=== PATIENT | female | born 1965 | race Caucasian/White ===

== ENCOUNTER 2020-04-29 00:45 | Outpatient (CLI) | payer OTHER, SELFPAY ==
[2020-04-29 18:12] LABS: SARS-CoV-2 RNA PCR Negative
== END 2020-04-29 00:46 | disposition home or self-care (01) ==
LOC: ANHCOVIDDT 00:45
PROVIDERS: PCP Family Medicine; Visit Provider Internal Medicine Gastroenterology
DX: Z20.828 Contact with and (suspected) exposure to other viral communicable diseases (principal); Z01.812 Encounter for preprocedural laboratory examination
CPT/HCPCS: 87635; C9803; U0003

== ENCOUNTER 2020-05-01 01:50 | Day surgery (SDC) | payer OTHER, SELFPAY ==
[2020-04-25 14:17] VITALS: BMI 24.9
[2020-05-01 10:03] VITALS: BP 95/65; PULSE 69; RESP 18; TEMP 36.6; O2SAT 99
--- NOTE | 2020-05-01 10:14 | WPDANESEPPF ---
Anes - Initial Pre Proc Eval Procedure: Operation Date: 05/01/20 11:30 Proposed Procedures p Colonoscopy - Georges Davis DO Date/Time: 05/01/20 10:14 Surgeon: Georges Davis DO Pre Op Diagnosis: Constipation Patient Data Age: 54 Gender: F Height: 5 ft 6 in Weight: 69.4 kg Last Vital Signs Temp 97.9 F 05/01/20 10:03 Pulse 69 05/01/20 10:03 Resp 18 05/01/20 10:03 BP 95/65 L 05/01/20 10:03 Pulse Ox 99 05/01/20 10:03 Allergies Allergy/AdvReac Type Severity Reaction Status Date / Time adhesive tape Allergy Mild RASH Verified 05/01/20 10:02 morphine Allergy Unknown itching Verified 05/01/20 10:02 and rash Sulfa (Sulfonamide Allergy Unknown rash and Verified 05/01/20 10:02 Antibiotics) nausea Home Medications Medication Instructions Recorded Confirmed Type alprazolam 0.5 mg PO PRN PRN 04/25/20 04/25/20 History buspirone 10 mg PO DAILY 04/25/20 04/25/20 History escitalopram oxalate 40 mg PO DAILY 04/25/20 04/25/20 History eszopiclone [Lunesta] 3 mg PO HS 04/25/20 04/25/20 History melatonin 5 mg PO HS PRN 04/25/20 04/25/20 History omega 6-xhm-eqt-fish oil [Fish Oil] 1 cap PO DAILY 04/25/20 04/25/20 History Patient hx anesthesia problems: none Family hx anesthesia problems: none [facility] Past Medical History Medical History (Updated 05/01/20 @ 10:14 by Antonio Loyola MD) Anxiety Depression Social History Social History Smoking status: Never smoker Second hand tobacco smoke exposure: No Alcohol intake: current Anes - Eval Final PreProcedure Day of Procedure 05/01/20 10:14 Patient weight: normal Heart: regular rate and rhythm Lungs: clear to auscultation Airway: Mallampati scale class II Neurological: alert and oriented Last oral intake: >/= 8 hours ASA classification: II Emergent: no Anesthetic plan: proceed Anesthesia type and monitoring: general GIVS and standard monitoring Informed Consent: The patient's anesthetic plan and its attendant risks and benefits were discussed with the patient/family/POA. Questions were solicited and answers provided to the satisfaction of the patient/family/POA.
[2020-05-01] MEDS: LACTATED RINGERS 1,000 ML 150 ML IV CONT (10:16)
--- NOTE | 2020-05-01 10:40 | P.HP_ITS ---
H&P: HPI History of Present Illness Chief complaint: Constipation Narrative: Reason for visit colonoscopy. This very pleasant lady's being evaluated at the request of the primary. The patient was examined. Impression: Screening colonoscopy. Patient does complain of occasional rectal bleeding which is probably of perianal origin. She does have occasional constipation which is probably functional. For past medical history. Recommendation: Colonoscopy. History: This very pleasant lady's being evaluated for colon cancer and polyp screening. She has had a previous colonoscopy several years ago which was unremarkable. She does complain of occasional constipation and occasional bright red blood per rectum. She is here for colonoscopy to assess for underlying inflammatory or neoplastic disease. Physical examination: General: very pleasant patient in no acute distress. HEENT: Head was normocephalic sclerae is clear mouth without masses neck was supple. Heart: Rate rhythm regular without S3 or S4. Lungs: CTA. Abdomen: Soft with no guarding or rigidity. Bowel sounds were active. Neurologic: Cranial nerves 2 through 12 intact. No focal defects. No clonus. Musculoskeletal system: Revealed no joint tenderness or swelling no muscle atrophy. Extremities: Reveal no significant edema. Skin: Warm and dry with normal turgor. Mental status: intact. Patient is alert and oriented. Review of Systems Review of Systems: All systems reviewed & are unremarkable except as noted in HPI and below PMFSH Past Medical History Medical History Anxiety Depression Endometriosis Melanoma Left leg. s/p excision. Surgical History Surgical History History of bunionectomy S/P [facility] Social History Social History Smoking status: Never smoker Second hand tobacco smoke exposure: No Alcohol intake: current Meds Home Medications and Allergies Home Medications Medication Instructions Recorded Confirmed Type alprazolam 0.5 mg PO PRN PRN 04/25/20 04/25/20 History buspirone 10 mg PO DAILY 04/25/20 04/25/20 History escitalopram oxalate 40 mg PO DAILY 04/25/20 04/25/20 History eszopiclone [Lunesta] 3 mg PO HS 06/12/20 06/12/20 History melatonin 5 mg PO HS PRN 04/25/20 04/25/20 History omega 7-eqq-urb-fish oil [Fish Oil] 1 cap PO DAILY 04/25/20 04/25/20 History Allergies Allergy/AdvReac Type Severity Reaction Status Date / Time adhesive tape Allergy Mild RASH Verified 05/01/20 10:02 morphine Allergy Unknown itching Verified 05/01/20 10:02 and rash Sulfa (Sulfonamide Allergy Unknown rash and Verified 05/01/20 10:02 Antibiotics) nausea Vital Signs Vital Signs - 24 hr 05/01/20 10:03 Temperature 36.6 C Pulse Rate 69 Respiratory Rate 18 Blood Pressure 95/65 L Pulse Oximetry 99
[2020-05-01 11:16] VITALS: BP 95/57; PULSE 63; RESP 17; O2SAT 98
[2020-05-01 11:26] VITALS: BP 100/58; PULSE 64; RESP 17; O2SAT 98
[2020-05-01 11:36] VITALS: BP 112/65; PULSE 61; RESP 17; O2SAT 98
== END 2020-05-01 11:43 | disposition home or self-care (01) ==
PROVIDERS: PCP Family Medicine; Visit Provider Internal Medicine Gastroenterology
PROC: 0DJD8ZZ Inspection of Lower Intestinal Tract, Via Natural or Artificial Opening Endoscopic (ICD-10-PCS; CPT 45378; principal; 2020-05-01 11:30)
DX: Z12.11 Encounter for screening for malignant neoplasm of colon (principal); K63.5 Polyp of colon; K64.8 Other hemorrhoids; F41.8 Other specified anxiety disorders; Z85.820 Personal history of malignant melanoma of skin
CPT/HCPCS: 45380; 88305; J2704; J7120

== ENCOUNTER 2020-12-03 12:49 | Outpatient (CLI) | payer OTHER, SELFPAY ==
--- NOTE | ~2020-12-03 | MM_ITS ---
EXAMINATION: MM screening rosamaria BI w susannah HISTORY: Screening mammogram TECHNIQUE: Craniocaudal and mediolateral oblique 3-D tomosynthesis images were obtained and synthetic 2-D images were generated. CAD analysis was submitted and interpreted. COMPARISON: 10/31/2019, 07/05/2018, 82/2014 bilateral digital screening mammogram examinations BREAST PARENCHYMAL COMPOSITION: The breasts are heterogeneously dense, which may obscure small masses . FINDINGS: An asymmetric density with architectural distortion is suggested in the mid to upper mid po sterior right breast on MLO view. Diagnostic right mammogram and right breast ultrasound examination are recommended. Otherwise there is no evidence of suspicious mass, calcification, or architectural distortion to sugg est malignancy in either breast. There has been no suspicious interval change. IMPRESSION: 1. Focal asymmetric density and architectural distortion in the mid to upper posterior right breast o n screening MLO view 2. Diagnostic right mammogram and right breast ultrasound examination are recommended. BI-RADS Category 0: Incomplete: Needs additional imaging evaluation. Reviewed, dictated and finalized at location A. ERY CLERK STOCKING IMPRESSION: 1. Focal asymmetric density and architectural distortion in the mid to upper po sterior right breast on screening MLO view 2. Diagnostic right mammogram and right breast ultrasound examination are recom mended. BI-RADS Category 0: Incomplete: Needs additional imaging evaluation.
== END 2020-12-03 12:50 | disposition home or self-care (01) ==
LOC: ANHIMG 12:53
PROVIDERS: PCP Family Medicine; Visit Provider Family Medicine
DX: Z12.31 Encounter for screening mammogram for malignant neoplasm of breast (principal); R92.8 Other abnormal and inconclusive findings on diagnostic imaging of breast
CPT/HCPCS: 77063; 77067

== ENCOUNTER 2021-01-02 12:17 | Outpatient (CLI) | payer OTHER, SELFPAY ==
--- NOTE | ~2021-01-02 | MMUS_ITS ---
EXAMINATION: MM diagnostic mammo unilat RT, US breast RT complete HISTORY: Follow-up right breast asymmetry TECHNIQUE: Additional 3-D tomosynthesis images of the right breast were performed and synthetic 2-D i mages were generated. CAD analysis was submitted and interpreted. High resolution complete right [address] [facility] ultrasound was performed. COMPARISON: Comparison to multiple prior studies sequentially, with oldest reviewed study dated 01/03. BREAST PARENCHYMAL COMPOSITION: The breasts are heterogenously dense, which may obscure small masses. FINDINGS: MAMMOGRAPHIC FINDINGS: There are no suspicious masses, calcifications or architectural distortion in the right breast to sug gest malignancy. ULTRASOUND: Complete left breast ultrasound: At 11:00 near the nipple there is an oval hypoechoic mass measuring 4 mm, likely a complicated cyst. IMPRESSION: 1. Probable benign 4 mm complicated cysts of the left breast at 11:00 near the nipple. 2. Recommend 6 month follow-up left breast ultrasound BI-RADS category 3, probably benign findings. Reviewed, dictated and finalized at location A. NG CHAIR SEAT CUSHION TRIMMER IMPRESSION: 1. Probable benign 4 mm complicated cysts of the left breast at 11:00 near the nipple. 2. Recommend 6 month follow-up left breast ultrasound BI-RADS category 3, probably benign findings.
== END 2021-01-02 12:18 | disposition home or self-care (01) ==
LOC: ANHIMG 12:18
PROVIDERS: PCP Family Medicine; Visit Provider Family Medicine
DX: R92.8 Other abnormal and inconclusive findings on diagnostic imaging of breast (principal)
CPT/HCPCS: 76641; 77065

== ENCOUNTER 2021-07-07 12:53 | Outpatient (CLI) | payer OTHER, SELFPAY ==
--- NOTE | ~2021-07-07 | US_ITS ---
EXAMINATION: US breast RT limited HISTORY: Six-month follow-up for probably benign right breast mass TECHNIQUE: Limited right breast ultrasound is performed. COMPARISON: 01/02/2021 FINDINGS: There is a stable 4 mm round, circumscribed, hypoechoic mass with posterior acoustic enhanc ement and no internal vascularity at the 11:00 location near the nipple. No suspicious interval casanova e is identified. IMPRESSION: Stable, probably benign right breast mass. Follow-up targeted ultrasound in six months is recommended . BI-RADS category 3, probably benign findings. Reviewed, dictated and finalized at location A. IMPRESSION: Stable, probably benign right breast mass. Follow-up targeted ultrasound in six months is recommended. BI-RADS category 3, probably benign findings.
== END 2021-07-07 12:54 | disposition home or self-care (01) ==
LOC: ANHIMG 12:57
PROVIDERS: PCP Family Medicine; Visit Provider Family Medicine
DX: R92.8 Other abnormal and inconclusive findings on diagnostic imaging of breast (principal)
CPT/HCPCS: 76642

== ENCOUNTER 2022-01-19 13:37 | Outpatient (CLI) | payer OTHER, SELFPAY ==
--- NOTE | ~2022-01-19 | MMUS_ITS ---
EXAMINATION: MM diagnostic rosamaria BI w susannah, US breast RT limited HISTORY: Follow-up left breast mass TECHNIQUE: Additional 3-D tomosynthesis images of the breasts were performed and synthetic 2-D images were generated. CAD analysis was submitted and interpreted. High resolution Limited right breast ult rasound was performed. COMPARISON: Comparison to multiple prior studies sequentially, with oldest reviewed study dated 07/2014. BREAST PARENCHYMAL COMPOSITION: The breasts are heterogenously dense, which may obscure small masses FINDINGS: MAMMOGRAPHIC FINDINGS: There are no suspicious masses, calcifications or architectural distortion to suggest malignancy. ULTRASOUND: Limited right breast ultrasound: At 11:00 near the nipple there is a 3 mm cyst. No suspicious masses to suggest malignancy. IMPRESSION: 1. No evidence for malignancy in either breast. 2. Routine yearly screening mammogram and regular clinical breast examination are recommended. BI-RADS Category 2: Benign finding(s). Reviewed, dictated and finalized at location A. TREATMENT OFFSIDER IMPRESSION: 1. No evidence for malignancy in either breast. 2. Routine yearly screening mammogram and regular clinical breast examination a re recommended. BI-RADS Category 2: Benign finding(s).
== END 2022-01-19 13:38 | disposition home or self-care (01) ==
PROVIDERS: PCP Family Medicine; Visit Provider Family Medicine
DX: R92.8 Other abnormal and inconclusive findings on diagnostic imaging of breast (principal)
CPT/HCPCS: 76642; 77062; 77066; G0279

== ENCOUNTER → 2025-03-27 12:12 | Outpatient (CLI) | payer OTHER, SELFPAY ==
--- OUTSIDE RECORDS SUMMARY | 2025-03-27 12:16 | XMS_ITS | Clinical Summary ---
Author Organization [facility] Address [address] [place] [address] Care Team Providers Care Back Hand Name Role Phone Unavailable Primary Care Provider Unavailabl e Source Comments [facility],non-owned Affiliates and Associated Physician Practices is amultiple site organization consisting of ambulatory clinics and hospital sitesin [place], [place], [place] and [place]. This disclosure is being madepursuant to the Care Everywhere program and may not contain all information available regarding this patient. Last updated 18.[facility] Social History Tobacco Use Types Packs/Day Years Used Date Smoking Tobacco: Never Assessed Comments Unknown Sex and Gender Information Value Date Recorded Sex Assigned at Not on file Legal Sex Female 9:22 AM CDT Gender Identity Not on file Sexual Orientation Not on file Plan of Treatment Health Maintenance Due Date Last Done Comments COLOGUARD (AGES 45-75) - COL ON CA SCREENING 1964 COLON MONITORING 1964 COLONOSCOPY - COLON CA SCREENING 1964 CT COLONOGRAPHY - COLON CA SCREENING 1964 Colorectal Cancer Screening 1964 FIT - COLON CA SCREENING 1964 FLEX SIG - COLON CA SCREENING 1964 LIPID TESTING 1964 MAMMOGRAM 1964 HIV SCREENING 1979 HEPATITIS C SCREENING 06/21/1982 DTAP/TDAP/TD VACCINES (1 - Tdap) 1983 PNEUMOCOCCAL VACCINE 50+ (1 of 1 - PCV) 2014 ZOSTER VACCINE (1 of 2) 2014 COVID-19 VACCINE ( - 2023-2 5 season) 2024 DEPRESSION SCREENING 11/14/2024 INFLUENZA VACCINE (Season Ended) 2025 Respiratory Syncytial Virus (RSV) Vaccine Pt: or over 60 yrs (1 - 1-dose 75+ series) 2039 HEPATITIS B VACCINE Aged Out No longe r eligible based on patient's age to complete this topic HIB VACCINE Aged Out No longer eligi ble based on patient's age to complete this topic HPV VACCINE Aged Out No longer eligi ble based on patient's age to complete this topic MENINGOCOCCAL (Group B) VACC INE SHARED DECISION-MAKING Aged Out No longer eligibl e based on patient's age to complete this topic MENINGOCOCCAL GROUPS A/C/Y/W VACCINE Aged Out No longer eligible b ased on patient's age to complete this topic Insurance [facility] [facility] Address: [facility] [id number] [address] [id number]
--- OUTSIDE RECORDS SUMMARY | 2025-03-27 12:16 | XMS_ITS | Clinical Summary ---
Author Organization [facility] Address [address] [place] [address] Care Team Providers Care Associate Marketing Manager Name Role Phone Palmira Romo MD Primary Care Provider + Allergies Active Allergy Reactions Criticality Noted Date Comments Morphine Unknown 05/21/2022 Sulfa (Sulfonamide Antibiotics) Rash Medium 06/2022 Medications ALPRAZolam (XANAX) 0.5 mg tablet alprazolam 0.5 mg tablet TAKE 1 TABLET BY MOUTH EVERY DAY NEEDED Active escitalopram (LEXAPRO) 20 mg tablet escitalopram 20 mg tablet 1 po qday Active eszopiclone (LUNESTA) 3 mg tablet eszopiclone 3 mg tablet TAKE 1 TABLET BY MOUTH EVERYDAY AT BEDTIME Active melatonin tablet Take by mouth nightly as needed for sleep Active cholecalciferol , vitamin D3, (VITAMIN D3 ORAL) Take by mouth Active [id number]-FIS H OIL ORAL Take by mouth Activ e cannabidiol, CBD, (medical cannabis) each 1 Dose as needed Active pantoprazole DR (PROTONIX) 40 mg EC tablet Take 1 tablet (40 mg total) by mouth daily 84 tablet 2 Active NOT IN DATABASE, PRESCRIPTION, Drug name: MAGIC MOUTHWASH Dose: 15 ML SWISH AND SPIT; HOLD IN MOUTH FOR 30 SECONDS Route: BY MOUTH Frequency: TID Duration: 5 DAYS 1 each 1 2 Active Active Problems No known active problems Surgical History Surgery Date Site/Laterality Comments HYSTERECTOMY BUNIONECTOMY SKIN CANCER EXCISION Right LOWER LEG Medical History Medical History Date Comments Melanoma (HCC) RIGHT LOWER LEG Allergic rhinitis Depression Anxiety Social History Tobacco Use Types Packs/Day Years Used Date Smoking Tobacco: Never Smokeless Tobacco: Never Tobacco Cessation:Counseling Given: Not Answered Personal Safety Answer Date Recorded Getting School Help Needed Not on file 01/28 Comments Unknown Sex and Gender Information Value Date Recorded Sex Assigned at Not on file Legal Sex Female 1:37 AM CONTRACT ADMINISTRATOR Gender Identity Not on file Sexual Orientation Not on file Obstetrics History Last Filed Vital Signs Vital Sign Reading Time Taken Comments Blood Pressure - - Pulse - - Temperature - - Respiratory Rate - - Oxygen Saturation - - Inhaled Oxygen Concentration - - Weight 67.1 kg (148 lb) 09/09/2022 1:13 PM CDT Height 165.1 cm (5' 5 ) 09/09/2022 1:13 PM CDT Body Mass Index 24.63 09/09/2022 1:13 PM CDT Plan of Treatment Health Maintenance Due Date Last Done Comments Breast Cancer Screening-Mammogram 1964 Colon Cancer Screening-Colonoscopy 1964 Depression Screening 1964 Hepatitis C Screening 1964 Regular Well Visit/Exam 18-64 1982 DTaP/Tdap/Td Vaccine (3 - Td or Tdap) 09/05/2022 09/05/2012, 06/14/2001 Covid-19 Vaccine (3 - 2023-2 5 season) 2024 09/11/2021, 01/17/2021 Influenza Vaccine (#1) 2024 , 08/14/2020, 08/28/2019 Hepatitis B Screening Completed 12/20/2001 , 07/23/2001, 06/14/2001 Zoster Vaccine Completed 04/20/2022, 01/01/2022 Pneumococcal vaccine <65 Aged Out No longer eligible based on patient's age to complete this topic Insurance [facility] Care Teams Associate Marketing Manager Relationship Specialty Start Date End Date Palmira Romo MD [address] [place] [address] [address] [place] [id number] PCP - General Family Medicine 05/21/22
--- OUTSIDE RECORDS SUMMARY | 2025-03-27 12:16 | XMS_ITS | Encounter Summary ---
Author Organization [facility] Address [address] [place] [address] Care Team Providers Care Stummel Selector Name Role Phone Unavailable Primary Care Provider Unavailabl e Encounter Details Date Type Department Care Team (Late st Contact Info) Description 05/29/2020 Lab Requisition [facility] DermPath Lab [address] [place] [address] Billy Red MD [address] [place] [address] Social History Tobacco Use Types Packs/Day Years Used Date Smoking Tobacco: Never Assessed Comments Unknown Sex and Gender Information Value Date Recorded Sex Assigned at Not on file Legal Sex Female 9:22 AM CDT Gender Identity Not on file Sexual Orientation Not on file documented as of this encounter Plan of Treatment Not on file documented as of this encounter Procedures Procedure Name Priority Date/Time Associated Diagnosis Comments DERMATOPATHOLOGY Routine 05/28/2020 12:0 0 AM CDT documented in this encounter Results * DERMATOPATHOLOGY (05/28/2020 12:00 AM CDT) Case Report Dermatopathology Report Case: [id number] Authorizing Provider: Billy Red MD Collected: 05/28/2020 12:00 AM Ordering Location: [facility] Received: 05/29/2020 12:55 PM Pathologist: Becca Delgado MD Specimen: Skin, right lateral mid thigh 0 4:50 PM CDT DERMATOPATHOLOGY LABORATORY Final Diagnosis Specimen A. 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 0 4:50 PM CDT DERMATOPATHOLOGY LABORATORY Gross Description Specimen A: Received is one formalin filled container labeled with the patient's name and designated right lateral mid thigh. The specimen consists of a shave biopsy measuring [id number]. Jar 0. 0 4:50 PM CDT DERMATOPATHOLOGY LABORATORY Microscopic Description Specimen A. SKIN, right lateral mid thigh: This is a compound nevus. There is architectural disorder characterized by a lentiginous proliferation of melanocytes between irregular nevus nests of cells along the dermal-epidermal junction. There is underlying lamellar fibroplasia of the papillary dermis. The intradermal component is bland in appearance and matures with depth. (Compound Lukas's Nevus or Compound Dysplastic Nevus) 0 4:50 PM CDT DERMATOPATHOLOGY LABORATORY Disclaimer An external and internal positive and negative controls are appropriate for the histochemical, immunohistochemical and immunofluorescence stain(s) in this case (if any), except where stated explicitly. The performance characteristics of the stain(s) cited in this report were developed and its performance characteristic determined by the Dermatopathology Laboratory at [facility], directed by Dr. Asha Hernandez. These tests need not be, and therefore are not, approved by the [place] Food and Drug Administration. The tests are used for clinical purposes. Billing Codes Specimen Charges Stain Charges 79825 1 0 4:50 PM CDT DERMATOPATHOLOGY LABORATORY Embedded Images 0 4:50 PM CDT DERMATOPATHOLOGY LABORATORY Pathology/Cytolog y TISSUE SPECIMEN FROM SKIN / Unknown 05/28/2020 05/29/2020 12:55 PM CDT us Billy Red MD LAB - PATHOLOGY/CYTOLOGY ORD ERABLES Final Result DERMATOPATHOLOGY LABORATORY [facility] - Department of Dermatology [facility]/[address] [address], [facility] [phone] documented in this encounter Visit Diagnoses Not on filedocumented in this encounter
--- OUTSIDE RECORDS SUMMARY | 2025-03-27 12:16 | XMS_ITS | Referral Summary ---
Author Organization [facility] Address [address] [place] [address] Care Team Providers Care Solderer Torch Name Role Phone Palmira Romo MD Primary [...] (VITAMIN D3 ORAL) Take by mouth Active [id number] H OIL ORAL Take by mouth Activ [...] Active Active Problems No known active problems Social History Tobacco Use Types Packs/Day Years Used Date Smoking Tobacco: Never Smokeless Tobacco: Never Tobacco Cessation:Counseling Given: Not Answered Personal Safety Answer Date Recorded Getting School Help Needed Not on file 01/28 Comments Unknown Sex and Gender Information Value Date Recorded Sex Assigned at Not on file 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 Gender Identity Not on file Sexual Orientation Not on file Last Filed Vital Signs Vital Sign Reading Time Taken Comments Blood Pressure - - Pulse - - Temperature - - Respiratory Rate - - Oxygen Saturation - - Inhaled Oxygen Concentration - - Weight 67.1 kg (148 lb) 09/09/2022 1:13 PM CDT Height 165.1 cm (5' 5 ) 09/09/2022 1:13 PM CDT Body Mass Index 24.63 09/09/2022 1:13 PM CDT Plan of Treatment Not on file Insurance [facility] C[facility] Care Teams Solderer Torch Relationship Specialty Start Date End Date Palmira Rmoo MD [address] [place] [address] [place] [address] PCP - General Family Medicine 05/21/22
--- OUTSIDE RECORDS SUMMARY | 2025-03-27 12:17 | XMS_ITS | Encounter Summary ---
Author Organization [facility] Address [address] [place] [address] Care Team Providers Care Sap Hana Architect Name Role Phone Unavailable Primary Care Provider Unavailabl e Encounter Details Date Type Department Care Team (Late st Contact Info) Description 05/21/2021 Lab Requisition [facility] DermPath Lab [address] [place] [address] Billy Red MD [address] [place] [address] Social History Tobacco Use Types Packs/Day Years [...] Priority Date/Time Associated Diagnosis Comments DERMATOPATHOLOGY Routine 05/20/2021 3:33 AM CDT documented in this encounter Results * DERMATOPATHOLOGY (05/20/2021 3:33 AM CDT) Case Report Dermatopathology Report Case: [id number] Authorizing Provider: Billy Red MD Collected: 05/20/2021 03:33 AM Ordering Location: [facility] Lab Received: 05/21/2021 12:14 PM Pathologist: Lori Hernandez MD Specimen: Skin, left index finger proximal phalange 3:42 PM CDT DERMATOPATHOLOGY LABORATORY Final Diagnosis Specimen A. SKIN, left index finger proximal phalange: COMPOUND MELANOCYTIC NEVUS, OF ACRAL SKIN (D22.62) 3:42 PM CDT DERMATOPATHOLOGY LABORATORY Clinical History R/O dysplastic nevus. 3:42 PM CDT DERMATOPATHOLOGY LABORATORY Gross Description Specimen A: Received is one formalin filled container labeled with the patient's name and designated left index finger proximal phalange. The specimen consists of a shave biopsy measuring [id number]. Jar 0. 3:42 PM CDT DERMATOPATHOLOGY LABORATORY Microscopic Description Specimen A. SKIN, left index finger proximal phalange: Sections show acral type skin with collections of melanocytes at the dermal-epidermal junction that are forming fairly well defined th ques. Melanocytes are also present in the upper dermis. 3:42 PM CDT DERMATOPATHOLOGY LABORATORY Disclaimer An external and internal positive and negative controls are appropriate for the histochemical, immunohistochemical and immunofluorescence stain(s) in this case (if any), except where stated explicitly. The performance characteristics of the stain(s) cited in this report were developed and its performance characteristic determined by the Dermatopathology Laboratory at [facility], directed by Dr. Asha Hernandez. These tests need not be, and therefore are not, approved by the [place] Food and Drug Administration. The tests are used for clinical purposes. Billing Codes Specimen Charges Stain Charges 09287 1 3:42 PM CDT DERMATOPATHOLOGY LABORATORY Embedded Images 3:42 PM CDT DERMATOPATHOLOGY LABORATORY Pathology/Cytolo gy TISSUE SPECIMEN FROM SKIN / Unknown 05/20/2021 3:33 AM CDT 05/21/2021 12:14 PM CDT us Billy Red MD LAB - PATHOLOGY/CYTOLOGY ORD ERABLES Final Result DERMATOPATHOLOGY LABORATORY [facility] - Department of Dermatology [address] [phone] documented in this encounter Visit Diagnoses Not on filedocumented in this encounter
--- OUTSIDE RECORDS SUMMARY | 2025-03-27 12:17 | XMS_ITS | Clinical Summary ---
Author Organization [facility] Address Formerly [facility] [place] [address] Care Team Providers Care Cad Technician Name Role Phone Kimberly Devi PERCY Primary Care Provider [phone] Family History * Patient is adopted Medical History Relation Comments Breast Cancer Neg Hx Social History Tobacco Use Types Packs/Day Years Used Date Smoking Tobacco: Never Assessed Comments Unknown Sex and Gender Information Value Date Recorded Sex Assigned at Not on file Legal Sex Female 7:47 PM CDT Gender Identity Not on file Sexual Orientation Not on file Last Filed Vital Signs Vital Sign Reading Time Taken Comments Blood Pressure - - Pulse - - Temperature - - Respiratory Rate - - Oxygen Saturation - - Inhaled Oxygen Concentration - - Weight 69.4 kg (153 lb) 08/02/2023 3:21 PM CDT Height 167.6 cm (5' 6 ) 08/02/2023 3:21 PM CDT Body Mass Index 24.69 08/02/2023 3:21 PM CDT Plan of Treatment Health Maintenance Due Date Last Done Comments Cervical Cancer Screening Pa p Smear (Age 30 to 64) Every 3 Years 1964 Colorectal Cancer Screening Colonoscopy (10 Years) 1964 Annual Physical 1967 Hepatitis C 1982 Cervical Cancer Screening Pa p with HPV Testing (Age 30 to 64) Every 5 Years 1994 Cervical Cancer Screening wi th HPV 1994 Pneumococcal Vaccine: 50+ Years (1 of 1 - PCV) 2014 COVID-19 Vaccine (2023-2 5 season) 2024 09/11/2021, 01/17/2021 Mammogram Screening 04/12/2026 04/12/2024, 01/25/2023 DTaP, Tdap and Td Vaccines ( 4 - Td or Tdap) 07/26/2033 07/26/2023, 09/05/2012, 06/14/2001 RSV Immunization or 60+ Years (1 - 1-dose 75+ series) 2039 Zoster Vaccines Completed 04/20/2022, 01/01/2022 Meningococcal B Vaccine Aged Out No l onger eligible based on patient's age to complete this topic Meningococcal Vaccine Aged Out No yulissa annia eligible based on patient's age to complete this topic RSV Immunizations Under 20 Months Aged Out No longer eligible b ased on patient's age to complete this topic Procedures Procedure Name Priority Date/Time Associated Diagnosis Comments MG SCREENING W KAILA ELVIS DIGI Routine 04/12/2024 12:51 PM CDT Encounter for screening mammogram for malignant neoplasm of breast from Last 3 Months or Most Recently Relevant to Health Maintenance Results * MG SCREENING W KAILA ELVIS DIGI (04/12/2024 12:51 PM CDT) Anatomical Region Laterality Modality Breast Bilateral Mammography 04/12/2024 4:34 PM CDT Impressions 04/12/2024 4:42 PM CDT ===== IMPRESSION: ===== 1. Additional imaging of the right breast Assessment: ACR BI-RADS 0 - INCOMPLETE: NEEDS ADDITIONAL IMAGING EVALUATION Recommendation: 1:Additional Imaging Right Comments: Ordered By: KIMBERLY DEVI Interpreted By: Akanksha Kuo, 04/12/2024 4:34 PM Narrative 04/12/2024 4:42 PM CDT EXAMINATION: Digital bilateral screening mammogram with 3-D tomosynthesis EXAM DATE/TIME: 04/12/2024 12:18 PM REASON FOR EXAM: SCREENING MAMMOGRAPHY COMPARISON: 01/19/2022.. 01/15/2023. Technique: Digital screening mammography of both breasts was performed in addition to 3-D Tomosynthesis technique. This study was read with the assistance of a computer-aided detection system. Tissue density: The breast tissue is heterogeneously dense, which may obscure small masses. Findings: Development of ill-defined asymmetric tissue in the upper outer quadrant of the right breast. Further diagnostic workup and possible follow-up ultrasound. Best seen on CC images.. No malignant microcalcifications. No skin thickening or retraction. Axillary regions are within normal limits. Benign calcifications. Kimberly GREER MAMMO Final Result from Last 3 Months or Most Recently Relevant to Health Maintenance Insurance [employer] Care Teams Cad Technician Relationship Specialty Start Date End Date Kimberly Devi APNP [address] [id number] PCP - General Nurse Practitioner Family 04/12/24
--- OUTSIDE RECORDS SUMMARY | 2025-03-27 12:17 | XMS_ITS | Data Portability ---
Author Organization [place] [facility], Main Office Address [address] [place] [address] Assessment No assessment recorded. Plan of Treatment Reminders Order Date Submit Date Provider Last Modified By Organization Details Last Modified Time Details Appointments None recorded. Lab ESR (erythrocyt e sedimentati on rate), blood 2022 023 VLADIMIR Not available 3 19:09:00 rf (rheumatoid factor), serum 2022 023 VLADIMIR Not available 3 19:51:09 RAVEN (antinuclea r antibodies) screen, serum 2022 023 VLADIMIR Not available 3 09:32:20 uric acid, serum or plasma 2022 023 VLADIMIR Not available 3 20:14:25 C-reactive protein, quantitativ e, serum or plasma 2022 023 VLADIMIR Not available 3 03:28:27 CBC w/ auto diff 2022 023 VLADIMIR Not available 3 18:49:31 Referral None recorded. Procedures None recorded. Surgeries None recorded. Imaging DEXA - *Please call pt to schedule* 2022 023 [facility] (Central Scheduling), [address], [place], [address], 3 17:27:53 home sleep study - *Please call pt to schedule* 2022 023 [facility] (Central Scheduling), [address] [place], [address], 3 08:01:32 Medication Orders eszopiclone 3 mg tablet 2022 023 VLADIMIR [facility], [address], [address], [place], [place], [id number], 3 15:11:20 alprazolam 0.5 mg tablet 2022 023 VLADIMIR [facility], [address], [address], [place], [place], [id number], 3 15:11:20 Nurtec ODT 75 mg disintegrat ing tablet 2022 023 [email or web address] [facility], [address], [address], [place], [place], [id number], 3 15:05:11 Patient TargetsNo targets recorded. Patient InstructionsNo instructions recorded. Reason for Referral None Reported. Results Created Date Observation Date Name Description Value Unit Range Abnormal Flag Note LastModifiedBy Organization Detail LastModifiedTime 02/03/20 22 02/02/2022 VITAM IN B12 (IRIS FADY ) vb12 884 pg/mL 239-93 1 Not Available [facility] (Lab) [address] [place], [address], 02/02/2022 21:14:09 02/03/20 22 02/02/2022 ABIGAIL TIN ferritin 64 NG/mL 11.1-2 64 Not Available [facility] (Lab) [address] [place], [address], 02/02/2022 21:07:13 02/03/20 22 02/02/2022 TSH thyroid-stim ulating hormone 2.550 uIU/m L 0.465- 4.680 Not Available [facility] (Lab) [address] [place], [address], 02/02/2022 21:07:04 02/03/20 22 02/02/2022 VITAM IN D 25-HY DROXY vd25oh 56.4 NG/mL 30-100 Vitam in D Statu s: Defic ient: <20 ng/mL Insuf ficie nt: 20-29 ng/mL Suffi cient : 30-10 0 ng/mL Not Available [facility] (Lab) [address] [place], [address], 02/02/2022 20:41:16 02/03/20 22 02/02/2022 IRON/ TIBC PANEL total iron binding capacity 314 mcg/d L 265-47 5 Not Available [facility] (Lab) [address] [place], [address], 02/02/2022 20:31:49 02/03/2002/02/2022 IRON/ TIBC PANEL % transferrin saturation 41 % 20-55 Not Available [facility] (Lab) [address] [place], [address], 02/02/2022 20:31:49 02/03/2002/02/2022 IRON/ TIBC PANEL unsaturated iron bind capacity 185 mcg/d L 126-38 2 Not Available [facility] (Lab) [address] [place], [address], 02/02/2022 20:31:49 02/03/20 22 02/02/2022 IRON/ TIBC PANEL iron 129 mcg/d L 42-175 Not Available [facility] (Lab) [address] [place], [address], 02/02/2022 20:31:49 02/03/2002/02/2022 BASIC METAB OLIC PANEL sodium 139 mmol/ L 137-14 5 Not Available [facility] (Lab) [address] [place], [address], 02/02/2022 20:31:45 02/03/20 22 02/02/2022 BASIC METAB OLIC PANEL potassium 4.5 mmol/ L 3.5-5. 1 Not Available [facility] (Lab) [address] [place], [address], 02/02/2022 20:31:45 02/03/20 22 02/02/2022 BASIC METAB OLIC PANEL chloride 105 mmol/ L 98-107 Not Available [facility] (Lab) [address] [place], [address], 02/02/2022 20:31:45 02/03/20 22 02/02/2022 BASIC METAB OLIC PANEL carbon dioxide 28 mmol/ L 22-30 Not Available [facility] (Lab) [address] [place], [address], 02/02/2022 20:31:45 02/03/20 22 02/02/2022 BASIC METAB OLIC PANEL agap 10.5 mmol/ L 14-22 low Not Available [facility] (Lab) [address] [place], [address], 02/02/2022 20:31:45 02/03/20 22 02/02/2022 BASIC METAB OLIC PANEL glucose 97 mg/dL 70-99 Not Available [facility] (Lab) [address] [place], [address], 02/02/2022 20:31:45 02/03/20 22 02/02/2022 BASIC METAB OLIC PANEL BUN 19 mg/dL 8-19 Not Available [facility] (Lab) [address] [place], [address], 02/02/2022 20:31:45 02/03/20 22 02/02/2022 BASIC METAB OLIC PANEL creatinine 0.70 mg/dL 0.66-1 .25 Not Available [facility] (Lab) [address] [place], [address], 02/02/2022 20:31:45 02/03/20 22 02/02/2022 BASIC METAB OLIC PANEL GFR >60 Refer ence Range : [place] GFR Healt hy Adult : >60 mL/mi n/1.7 3 m2 Chron ic Kidne y Disea se: 15-60 mL/mi n/1.7 3 m2 Kidne y Failu re: <15/m L/min /1.73 m2 www.n iddk. nih.g ov The MDRD study equat ion has not been valid ated in child ian <18 years of age; pregn ant women ; the elder ly >85 years of age; or in some racia l or ethni c subgr oups, such as Hispa nics. Outsi de the valid ated sandra eters , estim ated GFR is less accur ate, requi ring clini suri judgm ent on a case- by-ca se basis . Clini suri inter preta tion for other races and ages must be made by the clini gaurang. The MDRD study equat ion has not been valid ated for the evalu ation of serum creat inine relat ed to nutri darshan l statu s or medic ation usage . For perso ns <18 years of age, a pedia tric GFR calcu lator is avail able on the [facility] websi te: https ://colin w.ana dc.o paddy/pr shakeel escalanteal s/kdo qi/gf r_cal culat or Not Available [facility] (Lab) [address] [place], [address], 02/02/2022 20:31:45 02/03/2002/02/2022 BASIC METAB OLIC PANEL calcium 9.7 mg/dL 8.4-10 .2 Not Available [facility] (Lab) [address] [place], [address], 02/02/2022 20:31:45 02/03/20 22 02/02/2022 CBC/C OMPLE TE BLD COUNT W/DIF F white blood cells 6.8 x10'3 /uL 4.2-10 .8 Not Available [facility] (Lab) [address] [place], [address], 02/02/2022 20:05:38 02/03/20 22 02/02/2022 CBC/C OMPLE TE BLD COUNT W/DIF F red blood cells 4.43 x10'6 /uL 3.80-5 .20 Not Available [facility] (Lab) [address] [place], [address], 02/02/2022 20:05:38 02/03/20 22 02/02/2022 CBC/C OMPLE TE BLD COUNT W/DIF F hemoglobin 13.8 g/dL 12.0-1 5.6 Not Available [facility] (Lab) [address] [place], [address], 02/02/2022 20:05:38 02/03/20 22 02/02/2022 CBC/C OMPLE TE BLD COUNT W/DIF F hematocrit 41.6 % 35.7-4 5.7 Not Available [facility] (Lab) [address] [place], [address], 02/02/2022 20:05:38 02/03/20 22 02/02/2022 CBC/C OMPLE TE BLD COUNT W/DIF F mean red cell volume 93.9 fL 82.0-9 9.0 Not Available [facility] (Lab) [address] [place], [address], 02/02/2022 20:05:38 02/03/20 22 02/02/2022 CBC/C OMPLE TE BLD COUNT W/DIF F mean red cell hemoglobin 31.2 pg 27.0-3 3.0 Not Available [facility] (Lab) [address] [place], [address], 02/02/2022 20:05:38 02/03/20 22 02/02/2022 CBC/C OMPLE TE BLD COUNT W/DIF F mean RBC HGB concentratio n 33.2 g/dL 31.0-3 6.0 Not Available [facility] (Lab) [address] [place], [address], 02/02/2022 20:05:38 02/03/20 22 02/02/2022 CBC/C OMPLE TE BLD COUNT W/DIF F red cell distribution width 13.6 % 11.8-1 5.5 Not Available [facility] (Lab) [address] [place], [address], 02/02/2022 20:05:38 02/03/20 22 02/02/2022 CBC/C OMPLE TE BLD COUNT W/DIF F platelets 242 x10'3 /uL 150-40 0 Not Available [facility] (Lab) [address] [place], [address], 02/02/2022 20:05:38 02/03/20 22 02/02/2022 CBC/C OMPLE TE BLD COUNT W/DIF F mean platelet volume 10.7 fL 9.0-12 .4 Not Available [facility] (Lab) [address] [place], [address], 02/02/2022 20:05:38 02/03/20 22 02/02/2022 CBC/C OMPLE TE BLD COUNT W/DIF F neutrophils 62.4 % 39.0-7 2.0 Not Available [facility] (Lab) [address] [place], [address], 02/02/2022 20:05:38 02/03/20 22 02/02/2022 CBC/C OMPLE TE BLD COUNT W/DIF F lymphocytes 26.1 % 16.0-4 7.0 Not Available [facility] (Lab) [address] [place], [address], 02/02/2022 20:05:38 02/03/20 22 02/02/2022 CBC/C OMPLE TE BLD COUNT W/DIF F monocytes 6.8 % 5.0-12 .0 Not Available [facility] (Lab) [address] [place], [address], 02/02/2022 20:05:38 02/03/20 22 02/02/2022 CBC/C OMPLE TE BLD COUNT W/DIF F eosinophils 3.8 % 1.0-7. 0 Not Available [facility] (Lab) [address] [place], [address], 02/02/2022 20:05:38 02/03/20 22 02/02/2022 CBC/C OMPLE TE BLD COUNT W/DIF F basophils 0.6 % 0.0-2. 0 Not Available [facility] (Lab) [address] [place], [address], 02/02/2022 20:05:38 02/03/2002/02/2022 CBC/C OMPLE TE BLD COUNT W/DIF F immature granulocytes 0.3 % 0.00-0 .50 Not Available [facility] (Lab) [address] [place], [address], 02/02/2022 20:05:38 02/03/20 22 02/02/2022 CBC/C OMPLE TE BLD COUNT W/DIF F neutrophils, absolute count 4.25 x10'3 /uL 1.5-8. 0 Not Available [facility] (Lab) [address] [place], [address], 02/02/2022 20:05:38 02/03/20 22 02/02/2022 CBC/C OMPLE TE BLD COUNT W/DIF F lymphocytes, absolute count 1.78 x10'3 /uL 1.07-3 .43 Not Available [facility] (Lab) [address] [place], [address], 02/02/2022 20:05:38 02/03/20 22 02/02/2022 CBC/C OMPLE TE BLD COUNT W/DIF F monocytes, absolute count 0.46 x10'3 /uL 0.29-0 .99 Not Available [facility] (Lab) [address] [place], [address], 02/02/2022 20:05:38 02/03/20 22 02/02/2022 CBC/C OMPLE TE BLD COUNT W/DIF F eosinophils, absolute count 0.26 x10'3 /uL 0.02-0 .53 Not Available [facility] (Lab) [address] [place], [address], 02/02/2022 20:05:38 02/03/20 22 02/02/2022 CBC/C OMPLE TE BLD COUNT W/DIF F basophils, absolute count 0.04 x10'3 /uL 0.01-0 .08 Not Available [facility] (Lab) [address] [place], [address], 02/02/2022 20:05:38 02/03/20 22 02/02/2022 CBC/C OMPLE TE BLD COUNT W/DIF F immature granulocytes ,absolute 0.02 x10'3 /uL 0.00-0 .05 Not Available [facility] (Lab) [address] [place], [address], 02/02/2022 20:05:38 02/03/20 22 02/02/2022 CBC/C OMPLE TE BLD COUNT W/DIF F nucleated red blood cells 0.0 % -0 Not Available [facility] (Lab) [address] [place], [address], 02/02/2022 20:05:38 02/03/20 22 02/02/2022 CBC/C OMPLE TE BLD COUNT W/DIF F NRBC# 0.00 x10'3 /uL Not Available [facility] (Lab) [address] [place], [address], 02/02/2022 20:05:38 03/03/20 22 03/08/2022 RAVEN/A NTINU CLEAR ANTIB ODIES ,IFA antinuclear antibodies, ifa negati ve Negat bonilla <1:80 Borde rline 1:80 Posit bonilla >1:80 ICAP nomen clatu re: AC-0 For more infor stephy n about Hep-2 cell patte rns use ANApa ttern s.org , the offic ial websi te for the Inter natio nal Conse nsus on Antin uclea r Antib carmen (RAVEN) Patte rns (ICAP ). Perfo rmed at: - [facility] [address] [place] [address], [place] [address] Lab Direc tor: Ralph prince PhD, Phone : [phone] Not Available Not Available 03/08/2022 05:06:41 03/03/20 22 03/05/2022 BACTE RIAL VAGIN OSIS, SALOME atopobium vaginae low - 0 score Not Available [address], [address], 03/05/2022 19:08:57 03/03/20 22 03/05/2022 BACTE RIAL VAGIN OSIS, SALOME bvab 2 low - 0 score Not Available [facility] [place] [address] [place], [address], 03/05/2022 19:08:57 03/03/20 22 03/05/2022 BACTE RIAL VAGIN OSIS, SALOME megasphaera 1 low - 0 score . Calcu late total score by nemesio g the 3 indiv idual bacte rial vagin osis (BV) marke r score s toget her. Total score is inter prete d as follo ws: Total score 0-1: Indic ates the absen ce of BV. Total score 2: Indet ermin ate for BV. Addit ional clini suri data shoul d be evalu ated to estab jean marie a diagn osis. Total score 3-6: Indic ates the prese nce of BV. . This test was devel oped and its perfo rmanc e max cteri stics deter mined by [facility]. It has not been clear ed or appro jia by the Food and Drug Admin istra tion. Perfo rmed at: =G - [facility] [place] [address] , [place] [address] Lab Direc tor: Danilo estrella MD, Phone : [phone] Not Available [facility] [address] [place], [address], 03/05/2022 19:08:57 03/03/20 22 03/03/2022 TEST NOT PERFO RMED tnp see commen t speci men not colle cted in prope r tube, Zinc needs colle cted in a royal blue plasm a metal free tube Not Available [facility] (Lab) [address] [place], [address], 03/03/2022 21:40:16 03/03/20 22 03/03/2022 URINA LYSIS COMPL ETE/I RIS W/RFX color light- yellow Not Available [facility] [address] [place], [address], 03/03/2022 20:43:09 03/03/20 22 03/03/2022 URINA LYSIS COMPL ETE/I RIS W/RFX appear clear Not Available [facility] [address] [place], [address], 03/03/2022 20:43:09 03/03/20 22 03/03/2022 URINA LYSIS COMPL ETE/I RIS W/RFX specific gravity 1.018 1.001- 1.030 Not Available [facility] [address] [place], [address], 03/03/2022 20:43:09 03/03/20 22 03/03/2022 URINA LYSIS COMPL ETE/I RIS W/RFX pH 6.5 pH_un its 5.0-9. 0 Not Available [facility] [address] [place], [address], 03/03/2022 20:43:09 03/03/20 22 03/03/2022 URINA LYSIS COMPL ETE/I RIS W/RFX leukocytes negati ve germania/u L negati ve- Not Available [facility] [address] [place], [address], 03/03/2022 20:43:09 03/03/20 22 03/03/2022 URINA LYSIS COMPL ETE/I RIS W/RFX nitrite negati ve negati ve- Not Available [facility] [address] [place], [address], 03/03/2022 20:43:09 03/03/20 22 03/03/2022 URINA LYSIS COMPL ETE/I RIS W/RFX protein negati ve mg/dL negati ve- Not Available [facility] [address] [place], [address], 03/03/2022 20:43:09 03/03/20 22 03/03/2022 URINA LYSIS COMPL ETE/I RIS W/RFX glucose normal mg/dL normal - Not Available [facility] [address] [place], [address], 03/03/2022 20:43:09 03/03/20 22 03/03/2022 URINA LYSIS COMPL ETE/I RIS W/RFX ketones negati ve mg/dL negati ve- Not Available [facility] [address] [place], [address], 03/03/2022 20:43:09 03/03/20 22 03/03/2022 URINA LYSIS COMPL ETE/I RIS W/RFX urobilinogen normal mg/dL normal - Not Available [facility] [address] [place], [address], 03/03/2022 20:43:09 03/03/20 22 03/03/2022 URINA LYSIS COMPL ETE/I RIS W/RFX bilirubin negati ve mg/dL negati ve- Not Available [facility] [address] [place], [address], 03/03/2022 20:43:09 03/03/20 22 03/03/2022 URINA LYSIS COMPL ETE/I RIS W/RFX blood negati ve mg/dL negati ve- Not Available [facility] [address] [place], [address], 03/03/2022 20:43:09 03/03/20 22 03/03/2022 URINA LYSIS COMPL ETE/I RIS W/RFX white blood cells 0-8 /i??h pfi?? 0-8 Not Available [facility] [address] [place], [address], 03/03/2022 20:43:09 03/03/20 22 03/03/2022 URINA LYSIS COMPL ETE/I RIS W/RFX red blood cells 0-4 /i??h pfi?? 0-4 Not Available [facility] [address] [place], [address], 03/03/2022 20:43:09 03/03/20 22 03/03/2022 URINA LYSIS COMPL ETE/I RIS W/RFX bacteria none Not Available [facility] [address] [place], [address], 03/03/2022 20:43:09 03/03/20 22 03/03/2022 URINA LYSIS COMPL ETE/I RIS W/RFX mucous occasi onal /i??l pfi?? abnormal Not Available [facility] [address] [facility] [place], [address], 03/03/2022 20:43:09 03/03/20 22 03/03/2022 URINA LYSIS COMPL ETE/I RIS W/RFX squamous epithelial none /i??l pfi?? Not Available [facility] [address] [place], [address], 03/03/2022 20:43:09 03/03/20 22 03/03/2022 URINA LYSIS COMPL ETE/I RIS W/RFX non-squamous epithelial 2 abnormal Not Available [facility] [address] [place], [address], 03/03/2022 20:43:09 07/26/20 23 07/26/2023 CBC/C OMPLE TE BLD COUNT W/DIF F white blood cells 5.3 x10'3 /uL 4.2-10 .8 Not Available [facility] (Lab) [address] [place], [address], 07/26/2023 18:49:31 07/26/20 23 07/26/2023 CBC/C OMPLE TE BLD COUNT W/DIF F red blood cells 4.13 x10'6 /uL 3.80-5 .20 Not Available [facility] (Lab) [address] [place], [address], 07/26/2023 18:49:31 07/26/20 23 07/26/2023 CBC/C OMPLE TE BLD COUNT W/DIF F hemoglobin 12.5 g/dL 12.0-1 5.6 Not Available [facility] (Lab) [address] [place], [address], 07/26/2023 18:49:31 07/26/20 23 07/26/2023 CBC/C OMPLE TE BLD COUNT W/DIF F hematocrit 39.0 % 35.7-4 5.7 Not Available [facility] (Lab) [address] [place], [address], 07/26/2023 18:49:31 07/26/20 23 07/26/2023 CBC/C OMPLE TE BLD COUNT W/DIF F mean red cell volume 94.4 fL 82.0-9 9.0 Not Available [facility] (Lab) [address] [place], [address], 07/26/2023 18:49:31 07/26/2007/26/2023 CBC/C OMPLE TE BLD COUNT W/DIF F mean red cell hemoglobin 30.3 pg 27.0-3 3.0 Not Available [facility] (Lab) [address] [place], [address], 07/26/2023 18:49:31 07/26/2007/26/2023 CBC/C OMPLE TE BLD COUNT W/DIF F mean RBC HGB concentratio n 32.1 g/dL 31.0-3 6.0 Not Available [facility] (Lab) [address] [place], [address], 07/26/2023 18:49:31 07/26/2007/26/2023 CBC/C OMPLE TE BLD COUNT W/DIF F red cell distribution width 13.7 % 11.8-1 5.5 Not Available [facility] (Lab) [address] [facility] [place], [address], 07/26/2023 18:49:31 07/26/2007/26/2023 CBC/C OMPLE TE BLD COUNT W/DIF F platelets 228 x10'3 /uL 150-40 0 Not Available [facility] (Lab) [address] [place], [address], 07/26/2023 18:49:31 07/26/2007/26/2023 CBC/C OMPLE TE BLD COUNT W/DIF F mean platelet volume 10.9 fL 9.0-12 .4 Not Available [facility] (Lab) [address] [place], [address], 07/26/2023 18:49:31 07/26/20 23 07/26/2023 CBC/C OMPLE TE BLD COUNT W/DIF F neutrophils 46.7 % 39.0-7 2.0 Not Available [facility] (Lab) [address] [place], [address], 07/26/2023 18:49:31 07/26/2007/26/2023 CBC/C OMPLE TE BLD COUNT W/DIF F lymphocytes 39.8 % 16.0-4 7.0 Not Available [facility] (Lab) [address] [place], [address], 07/26/2023 18:49:31 07/26/2007/26/2023 CBC/C OMPLE TE BLD COUNT W/DIF F monocytes 9.3 % 5.0-12 .0 Not Available [facility] (Lab) [address] [place], [address], 07/26/2023 18:49:31 07/26/2007/26/2023 CBC/C OMPLE TE BLD COUNT W/DIF F eosinophils 3.2 % 1.0-7. 0 Not Available [facility] (Lab) [address] [place], [address], 07/26/2023 18:49:31 07/26/2007/26/2023 CBC/C OMPLE TE BLD COUNT W/DIF F basophils 0.8 % 0.0-2. 0 Not Available [facility] (Lab) [address] [place], [address], 07/26/2023 18:49:31 07/26/2007/26/2023 CBC/C OMPLE TE BLD COUNT W/DIF F immature granulocytes 0.2 % 0.00-0 .50 Not Available [facility] (Lab) [address] [place], [address], 07/26/2023 18:49:31 07/26/2007/26/2023 CBC/C OMPLE TE BLD COUNT W/DIF F neutrophils, absolute count 2.47 x10'3 /uL 1.5-8. 0 Not Available [facility] (Lab) [address] [place], [address], 07/26/2023 18:49:31 07/26/2007/26/2023 CBC/C OMPLE TE BLD COUNT W/DIF F lymphocytes, absolute count 2.10 x10'3 /uL 1.07-3 .43 Not Available [facility] (Lab) [address] [place], [address], 07/26/2023 18:49:31 07/26/2007/26/2023 CBC/C OMPLE TE BLD COUNT W/DIF F monocytes, absolute count 0.49 x10'3 /uL 0.29-0 .99 Not Available [facility] (Lab) [address] [place], [address], 07/26/2023 18:49:31 07/26/2007/26/2023 CBC/C OMPLE TE BLD COUNT W/DIF F eosinophils, absolute count 0.17 x10'3 /uL 0.02-0 .53 Not Available [facility] (Lab) [address] [place], [address], 07/26/2023 18:49:31 07/26/2007/26/2023 CBC/C OMPLE TE BLD COUNT W/DIF F basophils, absolute count 0.04 x10'3 /uL 0.01-0 .08 Not Available [facility] (Lab) [address] [place], [address], 07/26/2023 18:49:31 07/26/2007/26/2023 CBC/C OMPLE TE BLD COUNT W/DIF F immature granulocytes ,absolute 0.01 x10'3 /uL 0.00-0 .05 Not Available [facility] (Lab) [address] [place], [address], 07/26/2023 18:49:31 07/26/20 23 07/26/2023 CBC/C OMPLE TE BLD COUNT W/DIF F nucleated red blood cells 0.0 % -0 Not Available [facility] (Lab) [address] [place], [address], 07/26/2023 18:49:31 07/26/20 23 07/26/2023 CBC/C OMPLE TE BLD COUNT W/DIF F NRBC# 0.00 x10'3 /uL Not Available [facility] (Lab) [address] [place], [address], 07/26/2023 18:49:31 07/26/2007/26/2023 SEDIM ENTAT ION RATE erythrocyte sedimentatio n rate 14 mm/HR 0-20 Not Available [facility] (Lab) [address] [place], [address], 07/26/2023 19:09:00 07/26/2007/26/2023 RHEUM ATOID FACTO R rf <8.6 IU/mL 0.0-11 .9 Not Available [facility] (Lab) [address] [place], [address], 07/26/2023 19:51:09 07/26/2007/26/2023 C REACT BONILLA PROTE IN,UL TRA SENS C-reactive protein 0.25 mg/dL 0.0-0. 5 Not Available [facility] (Lab) [address] [place], [address], 07/26/2023 19:51:11 07/26/2007/26/2023 URIC ACID SERUM uric acid 4.3 mg/dL 2.5-6. 2 Not Available [facility] (Lab) [address] [place], [address], 07/26/2023 20:14:24 07/26/20 23 07/29/2023 RAVEN BY IFA RFX TITER /RUBIA RADHA antinuclear antibodies, ifa Negati ve Negat bonilla <1:80 Borde rline 1:80 Posit bonilla >1:80 ICAP nomjerman macias re: AC-0 For more infor stephy ybarra about Hep-2 cell patte rns use ANApa ttern s.org , the offic ial websi te for the Inter natio nal Conse nsus on Antin uclea r Antib carmen (RAVEN) Patte rns (ICAP ). Perfo rmed at: CB - [facility] n [address], [place] [id number] Lab Direc tor: Ralph prince PhD, Phone : [phone] Not Available [facility] (Lab) [address] [place], [address], 07/29/2023 09:13:51 01/20/20 22 01/19/2022 US, victor m de los santos No observ ation record ed. [id number] [facility], [place], [address], 01/12/2023 08:15:31 01/20/20 22 01/19/2022 MAMMO , diagn ostic , digit al, bilat eral No observ ation record ed. [id number] [facility], [place], [address], 01/12/2023 08:15:31 01/27/20 23 01/25/2023 MAMMO , scree gabe, digit al, bilat eral No observ ation record ed. [email or web address] [facility] [address] [place], [address], 01/31/2023 17:17:45 08/10/20 23 08/02/2023 home sleep study No observ ation record ed. Not Available 2022 10:33:39 09/01/20 23 09/01/2023 DEXA No observ ation record ed. [email or web address] [facility] [address] [place], [address], 03/28/2024 19:17:39 Result Notes None recorded. Problems Name Problem SNOMED Code Status Onset Date Resolution Date Notes Provider Name and Address Organization Details Recorded Time Melanoma in situ of skin (clinical) 704348597 Active 2016 Not Available [facility] 3 08:10:21 Insomnia 827540917 Active Not Available [facility] 3 08:10:21 Menopause finding 073643358 Active Not Available [facility] 3 08:10:21 Vaginitis 93686865 Active Not Available [facility] 3 08:10:21 Vitamin D deficiency 25704984 Active 2017 Not Available [facility] 3 08:10:21 Depressive disorder 99852399 Active Not Available [facility] 3 08:10:22 S [id number]||2025-03-27 12:30:00|XR_ITS|BURKT|Imaging|[id number]|"XR hip RT 2V w AP pelvis 03/27/2025 12:29 INDICATION: Right hip pain PROCEDURE: AP pelvis and 2 views right hip COMPARISON: No prior studies for comparison. FINDINGS: Fracture, dislocation or subluxation is not identified. Pelvic rings intact. No fracture, s ubluxation or dislocation. Sacral foramen are symmetric. No significant soft tissue abnormality. No f oreign bodies. The soft tissues appear within normal limits. No foreign bodies are identified. IMPRESSION: 1: NO ACUTE BONE OR JOINT ABNORMALITY IDENTIFIED. Reviewed, dictated and finalized at location A. IMPRESSION: 1: NO ACUTE BONE OR JOINT ABNORMALITY IDENTIFIED. "
--- OUTSIDE RECORDS SUMMARY | 2025-03-27 12:17 | XMS_ITS | Clinical Summary ---
Author Organization [facility] Address [address], [address] [address] Phone Care Team Providers Care Appian Developer Name Role Phone Palmira Romo MD Primary Care Provider + Georges Davis DO Unavailable Social History Tobacco Use Types Packs/Day Years Used Date Smoking Tobacco: Never Assessed Comments Unknown Sex and Gender Information Value Date Recorded Sex Assigned at Not on file Legal Sex Female 11:24 PM CDT Gender Identity Not on file Sexual Orientation Not on file Plan of Treatment Health Maintenance Due Date Last Done Comments Hepatitis C Virus (HCV) Screening 1964 TdaP Immunization 1964 Pap Smear 1985 Cervical Cancer Screening (CCS) 1994 HPV/Cotest 1994 Cologuard 2014 Immunochemical Fecal Occult Blood 2014 Mammogram 2014 Pneumococcal Immunization (5 0+ years) (1 of 1 - PCV) 2014 Zoster Immunization (1 of 2) 2014 Influenza Immunization (#1) 2024 SARS-COV-2 Immunization ( - 2023- season) 2024 Colonoscopy 05/01/2027 05/01/2020 Colorectal Cancer Screening 05/01/2027 Respiratory Syncytial Virus (RSV) Immunization (Adult) (1 - 1-dose 75+ series) 2039 05/01/2020 Hepatitis B Immunization Aged Out No longer eligible based on patient's age to complete this topic Meningococcal Immunization (ACWY) Aged Out No longer eligible based on patient's age to complete this topic Pneumococcal Immunization Combined Aged Out No longer eligible based on patient's age to complete this topic Rotavirus Immunization Aged Out No lo nger eligible based on patient's age to complete this topic Procedures Procedure Name Priority Date/Time Associated Diagnosis Comments COLONOSCOPY Routine 05/01/2020 from Last 3 Months or Most Recently Relevant to Health Maintenance Results * HM COLONOSCOPY (05/01/2020) Georges Davis DO PROCEDURE/MINOR SURGICAL ORDERA BLES Final Result from Last 3 Months or Most Recently Relevant to Health Maintenance Insurance [facility] Care Teams Appian Developer Relationship Specialty Start Date End Date Palmira Romo MD [address] [place] [address] PCP - General Family Medicine 05/12/20 Georges Davis DO [address] [place] [address] Consulting Physician Gastroenterology 05/12/20
== END ==
PROVIDERS: PCP Nurse Practitioner Family; Visit Provider Nurse Practitioner Family
DX: M25.551 Pain in right hip (principal)
CPT/HCPCS: 73502

== ENCOUNTER 2025-03-27 12:56 | Outpatient (CLI) | payer OTHER, SELFPAY ==
--- OUTSIDE RECORDS SUMMARY | 2025-03-27 13:08 | XMS_ITS | Clinical Summary ---
Author Organization [facility] C Address [address] 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
--- OUTSIDE RECORDS SUMMARY | 2025-03-27 13:08 | XMS_ITS | Clinical Summary ---
Author Organization [facility] Address [address] [place] [address] Care Team Providers Care Dry Kiln Feeder Name Role Phone Unavailable Primary Care Provider Unavailabl e Source Comments [facility],non-owned Affiliates and Associated Physician Practices is amultiple site organization consisting of ambulatory clinics and hospital sitesin [place], [place], [place] and [place]. This disclosure is being madepursuant to the Care Everywhere program and may not contain all information available regarding this patient. Last updated 18.[facility] [employer] Social History Tobacco Use Types Packs/Day Years [...]
--- OUTSIDE RECORDS SUMMARY | 2025-03-27 13:08 | XMS_ITS | Clinical Summary ---
Author Organization [facility] Address [address], [address] [address] Phone Care Team Providers Care China Decorator Name Role Phone Palmira Romo MD Primary Care Provider + Georges Davis DO Unavailable [phone] Social History Tobacco Use Types Packs/Day Years [...] Most Recently Relevant to Health Maintenance Insurance [facility] Care Teams China Decorator Relationship Specialty Start Date End Date Palmira Romo MD [address] [place] [id number] PCP - General Family Medicine 05/12/20 Georges Davis DO [address] [place] [address] Consulting Physician Gastroenterology 05/12/20
--- OUTSIDE RECORDS SUMMARY | 2025-03-27 13:08 | XMS_ITS | Encounter Summary ---
Author Organization [facility] Address [address] [facility] [place] [address] Care Team Providers Care Motorcycle Engine Assembler Name Role Phone Unavailable Primary Care Provider Unavailabl e Encounter Details Date Type Department Care Team (Late st Contact Info) Description 05/29/2020 Lab Requisition [facility] [address] [place] [address] Billy Red MD [address] [place] [address] Social History Tobacco Use Types Packs/Day Years [...] AM CDT) Case Report Dermatopathology Report Case: [id number] Authorizing Provider: Billy Red MD Collected: 05/28/2020 12:00 AM Ordering Location: [facility] Received: 05/29/2020 12:55 PM Pathologist: [...] specimen consists of a shave biopsy measuring [id number]. Jar 0. 0 4:50 PM CDT DERMATOPATHOLOGY [...] determined by the Dermatopathology Laboratory at [facility], directed by Dr. Asha Hernandez. These tests need not be, and therefore are not, approved by the [place] Food and Drug Administration. The tests are used for clinical purposes. Billing Codes Specimen Charges Stain Charges 67158 1 0 4:50 PM CDT DERMATOPATHOLOGY LABORATORY Embedded Images 0 4:50 PM CDT DERMATOPATHOLOGY LABORATORY Pathology/Cytolog y TISSUE SPECIMEN FROM SKIN / Unknown 05/28/2020 05/29/2020 12:55 PM CDT us Billy Red MD LAB - PATHOLOGY/CYTOLOGY ORD ERABLES Final Result DERMATOPATHOLOGY LABORATORY [facility] - Department of Dermatology Director [facility]/[address] [address], [facility] [phone] documented in this encounter Visit Diagnoses Not on filedocumented in this encounter
--- OUTSIDE RECORDS SUMMARY | 2025-03-27 13:08 | XMS_ITS | Encounter Summary ---
Author Organization [facility] Address [address] [facility] [place] [address] Care Team Providers Care Mopper Name Role Phone Unavailable Primary Care Provider Unavailabl e Encounter Details Date Type Department Care Team (Late st Contact Info) Description 05/21/2021 Lab Requisition [facility] [address] [place] [address] Billy Red MD [address] [place] [address] Social History Tobacco Use Types Packs/Day Years [...] AM CDT) Case Report Dermatopathology Report Case: [id number] Authorizing Provider: Billy Red MD Collected: 05/20/2021 03:33 AM Ordering Location: [facility] Received: 05/21/2021 12:14 PM Pathologist: [...] specimen consists of a shave biopsy measuring [id number]. Jar 0. 3:42 PM CDT DERMATOPATHOLOGY LABORATORY [...] characteristic determined by the Dermatopathology Laboratory at [facility], directed by Dr. Asha Hernandez. These tests need not be, and therefore are not, approved by the [place] Food and Drug Administration. The tests are used for clinical purposes. Billing Codes Specimen Charges Stain Charges [id number] 1 3:42 PM CDT DERMATOPATHOLOGY LABORATORY Embedded Images 3:42 PM CDT DERMATOPATHOLOGY LABORATORY Pathology/Cytolo gy TISSUE SPECIMEN FROM SKIN / Unknown 05/20/2021 3:33 AM CDT 05/21/2021 12:14 PM CDT us Billy Red MD LAB - PATHOLOGY/CYTOLOGY ORD ERABLES Final Result DERMATOPATHOLOGY LABORATORY [facility] - Department of Dermatology [address], [address] [phone] documented in this encounter Visit Diagnoses Not on filedocumented in this encounter
--- OUTSIDE RECORDS SUMMARY | 2025-03-27 13:08 | XMS_ITS | Referral Summary ---
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
--- OUTSIDE RECORDS SUMMARY | 2025-03-27 13:08 | XMS_ITS | Clinical Summary ---
Author Organization [facility] Address [facility] [place] [address] Care Team Providers Care Telesales Representative Name Role Phone Kimberly Devi PERCY Primary Care Provider [phone] Family History * Patient is adopted Medical [...] to Health Maintenance Insurance [employer] Care Teams Telesales Representative Relationship Specialty Start Date End Date Kimberly Devi APNP [address] [address] PCP - General Nurse Practitioner Family 04/12/24
--- NOTE | 2025-03-27 13:46 | ECG_ITS ---
Test Date: 2025-03-27 13:53:02 Measurements Intervals [place] Rate: 58 P: 48 ND: 154 QRS: 68 QRSD: 97 T: 56 QT: 431 QTc: 425 Interpretive Statements SINUS BRADYCARDIA No previous ECG available for comparison Electronically Signed On 03-27-2025 18:17:43 CDT by Naima Pack
== END 2025-03-27 12:57 | disposition home or self-care (01) ==
PROVIDERS: PCP Nurse Practitioner Family; Visit Provider Nurse Practitioner Family
DX: R07.9 Chest pain, unspecified (principal)
CPT/HCPCS: 93005

== ENCOUNTER 2025-08-16 02:00 | Day surgery (SDC) | payer OTHER, SELFPAY ==
[2025-08-07 12:23] VITALS: BMI 25.0
--- OUTSIDE RECORDS SUMMARY | 2025-08-16 02:03 | XMS_ITS | Clinical Summary ---
Author Organization [facility] Address [address], [address] [address] Phone Care Team Providers Care Screen Room Operator Name Role Phone Palmira Romo MD Primary Care Provider + Georges Davis DO Unavailable [phone] Social History Tobacco Use Types Packs/Day [...] Cancer Screening (CCS) 1994 HPV/Cotest 1994 Cologuard 2009 Immunochemical Fecal Occult Blood 2009 Pneumococcal Immunization (5 0+ years) (1 of 1 - PCV) 2014 Zoster Immunization (1 of 2) 2014 Influenza Immunization (#1) 2025 SARS-COV-2 Immunization ( - 2023- season) 2025 Colonoscopy 05/01/2027 05/01/2020 Colorectal Cancer Screening 05/01/2027 Respiratory Syncytial Virus (RSV) Immunization (Adult) (1 - 1-dose 75+ series) 2039 Hepatitis B Immunization Aged Out No longer eligible based on patient's age to complete this topic Human Papillomavirus (HPV) Immunization Aged Out No longer eligible b ased [...] Most Recently Relevant to Health Maintenance Insurance [facility] Care Teams Screen Room Operator Relationship Specialty Start Date End Date Palmira Romo MD [address] [place] [id number] PCP - General Family Medicine 05/12/20 Georges Davis DO [address] [place] [id number] Consulting Physician Gastroenterology 05/12/20
--- OUTSIDE RECORDS SUMMARY | 2025-08-16 02:03 | XMS_ITS | Clinical Summary ---
Author Organization [facility] Address [address] [place] [address] Care Team Providers Care Launch Leader Name Role Phone Unavailable Primary Care Provider Unavailabl e Source Comments [facility],non-owned Affiliates and Associated Physician Practices is amultiple site organization consisting of ambulatory clinics and hospital sitesin [place], [place], [place] and [place]. This disclosure is being madepursuant to the Care Everywhere program and may not contain all information available regarding this patient. Last updated 18.[facility] [employer] Social History Tobacco Use Types Packs/Day Years [...] 2014 ZOSTER VACCINE (1 of 2) 2014 DEPRESSION SCREENING 11/14/2024 COVID-19 VACCINE (1 - 2023-2 5 season) 2025 INFLUENZA VACCINE (#1) 2025 Respiratory Syncytial Virus (RSV) Vaccine Pt: [...]
--- OUTSIDE RECORDS SUMMARY | 2025-08-16 02:03 | XMS_ITS | Encounter Summary ---
Author Organization [facility] Address [address] [place] [address] Care Team Providers Care Education And Outreach Coordinator Name Role Phone Unavailable Primary Care Provider Unavailabl e Encounter Details Date Type Department Care Team (Late st Contact Info) Description 05/21/2021 Lab Requisition [facility] [address] [place] [address] Blily Red MD [address] [place] [address] Social History Tobacco Use Types Packs/Day Years [...] AM CDT) Case Report Dermatopathology Report Case: [id number] Authorizing Provider: Billy Red MD Collected: 05/20/2021 03:33 AM Ordering Location: [facility] Received: 05/21/2021 12:14 PM Pathologist: Lori Hernandez MD Specimen: Skin, left index finger proximal phalange 3:42 PM CDT DERMATOPATHOLOGY LABORATORY Final Diagnosis Specimen A. SKIN, left index finger proximal phalange: COMPOUND MELANOCYTIC NEVUS, OF ACRAL SKIN (D22.62) 3:42 PM CDT DERMATOPATHOLOGY LABORATORY at 1542 CDT Clinical History R/O dysplastic nevus. 3:42 PM CDT DERMATOPATHOLOGY LABORATORY Gross Description Specimen A: Received is one formalin filled container labeled with the patient's name and designated left index finger proximal phalange. The specimen consists of a shave biopsy measuring [id number]. Jar 0. 3:42 PM CDT DERMATOPATHOLOGY LABORATORY [...] characteristic determined by the Dermatopathology Laboratory at [facility], directed by Dr. Asha Hernandez. These tests need not be, and therefore are not, approved by the [place] Food and Drug Administration. The tests are used for clinical purposes. Billing Codes Specimen Charges Stain Charges 72758 1 1 3:42 PM CDT DERMATOPATHOLOGY LABORATORY Embedded Images 3:42 PM CDT DERMATOPATHOLOGY LABORATORY Pathology/Cytolo gy TISSUE SPECIMEN FROM SKIN / Unknown 05/20/2021 3:33 AM CDT 05/21/2021 12:14 PM CDT Billy Red MD LAB - PATHOLOGY/CYTOLOGY ORD ERABLES Final Result DERMATOPATHOLOGY LABORATORY [facility] - Department of Dermatology [address], [address] [phone] documented in this encounter Visit Diagnoses Not on filedocumented in this encounter
--- OUTSIDE RECORDS SUMMARY | 2025-08-16 02:03 | XMS_ITS | Encounter Summary ---
Author Organization [facility] Address [address] [facility] [place] [place] [address] Care Team Providers Care Foreign Food Specialty Cook Name Role Phone Unavailable Primary Care Provider Unavailabl e Encounter Details Date Type Department Care Team (Late st Contact Info) Description 05/29/2020 Lab Requisition [facility] [address] [place] [address] Billy Red MD [address] [place] [address] Social History Tobacco Use Types Packs/Day Years [...] AM CDT) Case Report Dermatopathology Report Case: [id number] Authorizing Provider: Billy Red MD Collected: 05/28/2020 12:00 AM Ordering Location: [facility] Received: 05/29/2020 12:55 PM Pathologist: Becca Delgado MD Specimen: Skin, right lateral mid thigh 0 4:50 PM CDT DERMATOPATHOLOGY LABORATORY Final Diagnosis Specimen A. 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 0 4:50 PM CDT DERMATOPATHOLOGY LABORATORY Gross Description Specimen A: Received is one formalin filled container labeled with the patient's name and designated right lateral mid thigh. The specimen consists of a shave biopsy measuring [id number]. Jar 0. 0 4:50 PM CDT DERMATOPATHOLOGY [...] purposes. Billing Codes Specimen Charges Stain Charges 95502 1 0 4:50 PM CDT DERMATOPATHOLOGY LABORATORY Embedded Images 0 4:50 PM CDT DERMATOPATHOLOGY LABORATORY Pathology/Cytolog y TISSUE SPECIMEN FROM SKIN / Unknown 05/28/2020 05/29/2020 12:55 PM CDT us Billy Red MD LAB - PATHOLOGY/CYTOLOGY ORD ERABLES Final Result DERMATOPATHOLOGY LABORATORY [facility] - Department of Dermatology [facility]/[address] [address], [facility] [phone] documented in this encounter Visit Diagnoses Not on filedocumented in this encounter
--- OUTSIDE RECORDS SUMMARY | 2025-08-16 02:03 | XMS_ITS | Clinical Summary ---
Author Organization [facility] Address [facility] [place] [address] Care Team Providers Care Loop Cutter Name Role Phone Kimberly Devi PERCY Primary Care Provider [phone] Family History * Patient is adopted Medical [...] 3:21 PM CDT Height 167.6 cm (5' 6) 08/02/2023 3:21 PM CDT Body Mass Index [...] of 1 - PCV) 2014 COVID-19 Vaccine (2024-2 6 season) 2025 09/11/2021, 01/17/2021 Mammogram Screening 04/12/2026 04/12/2024, 01/25/2023 [...] Most Recently Relevant to Health Maintenance [facility] Care Teams Loop Cutter Relationship Specialty Start Date End Date Kimberly Devi APNP [address] [phone] PCP - General Nurse Practitioner Family 04/12/24
--- OUTSIDE RECORDS SUMMARY | 2025-08-16 02:04 | XMS_ITS | Patient Health Record ---
Author Organization [facility] Address [address] [place] [address] Care Team Providers Care Meat Sales And Storage Manager Name Role Phone Charles Agarwal Unavailable [phone] Reason For Referral No Information Medications Medication SIG (Take, Route, Frequency, Duration) Notes Start Date End Date Status busPIRone HCl 10 MG Tablet Oral 07/15/2021 Active ALPRAZolam 0.5 MG Tablet Oral 07/15/2021 Active Eszopiclone 3 MG Tablet Oral 07/15/2021 Active Belsomra 20 mg Tablet Oral 07/15/2021 Active Escitalopram Oxalate 20 MG Tablet Oral 07/15/2021 Active Immunizations Vaccine Route Administration Date Status Comme nts Tdap Unknown 06/14/2001 Administered Tdap Unknown 09/05/2012 Administered Pfizer Biontech Covid-19 Vac cine 2nd dose Unknown 01/17/2021 Administered MMR Unknown 11/14/1965 Administered MMR Unknown 07/05/1969 Administered Influenza, injectable, MDCK, preservative free Unknown 08/14/2020 Administered Influenza virus vaccine, quadrivalent (IIV4), split virus, 0.25 mL dosage Unknown 09/13/2018 Administered Influenza virus vaccine, quadrivalent (IIV4), split virus, 0.25 mL dosage Unknown 08/28/2019 Administered Hep B, adult dosage Unknown 06/14/2001 Administered Hep B, adult dosage Unknown 07/23/2001 Administered Hep B, adult dosage Unknown 12/20/2001 Administered Social History Social History Additional Details Category Social Info Options Details Migrated Social History Migrated Social History Alcohol Intake: Occasional 10/11/2018,Tobacco Years: Never smoker 10/11/2018,Smoking Status: 0 02/12/2021 Plan Of Treatment No Information Insurance Providers Payer Name Payer Address Payer Phone Subscriber Number Group Number Insured Name Patient Relationship to Insured Coverage Start Date Coverage End Date [facility] [address] [place] [phone] [phone] [id number] ENOC GOODWIN Spouse - patient is the spouse of the insured Medical (General) History Surgical History Surgery Date(Month/Year) Other Hysterectomy (69030)
--- OUTSIDE RECORDS SUMMARY | 2025-08-16 02:04 | XMS_ITS | Data Portability ---
Author Organization [place] [facility] [employer], Main Office Address [address] [place] [address] Assessment No assessment recorded. Plan of Treatment [...] *Please call pt to schedule* 2022 023 [facility] (Central Scheduling), [address], [place], [address], 3 17:27:53 home sleep study - *Please call pt to schedule* [address] (Central Scheduling), [address] [address], [place], [address], 3 08:01:32 Medication Orders eszopiclone 3 mg tablet 2022 023 [email or web address] [facility], [address], [address], [place], [place], [id number], 3 15:11:20 alprazolam 0.5 mg tablet 2022 023 VLADIMIR [facility], [address], [address], [place], [place], [id number], 3 15:11:20 Nurtec ODT 75 mg disintegrat ing tablet 2022 023 [email or web address] [facility], [address], [address], [place], [place], [id number], 3 15:05:11 Patient TargetsNo targets recorded. Patient InstructionsNo instructions recorded. Reason for Referral None Reported. Results Created Date Observation Date Name Description Value Unit Range Abnormal Flag Note LastModifiedBy Organization Detail LastModifiedTime 02/03/20 22 02/02/2022 VITAM IN B12 (IRIS FADY ) vb12 884 pg/mL 239-93 1 Not Available [facility] (Lab) [address] [place], [address], 02/02/2022 21:14:09 02/03/20 22 02/02/2022 ABIGAIL TIN ferritin 64 NG/mL 11.1-2 64 Not Available [facility] (Lab) [address] [place], [address], 02/02/2022 21:07:13 02/03/20 22 02/02/2022 TSH thyroid-stim ulating hormone 2.550 uIU/m L 0.465- 4.680 Not Available [facility] (Lab) [address] [place], [address], 02/02/2022 21:07:04 02/03/20 22 02/02/2022 VITAM IN D 25-HY DROXY vd25oh 56.4 NG/mL 30-100 Vitam in D Statu s: Defic ient: <20 ng/mL Insuf ficie nt: 20-29 ng/mL Suffi cient : 30-10 0 ng/mL Not Available [facility] (Lab) [address] [place], [address], 02/02/2022 20:41:16 02/03/20 22 02/02/2022 IRON/ TIBC PANEL total iron binding capacity 314 mcg/d L 265-47 5 Not Available [facility] (Lab) [address] [place], [address], 02/02/2022 20:31:49 02/03/20 22 02/02/2022 IRON/ TIBC PANEL % transferrin saturation 41 % 20-55 Not Available [facility] (Lab) [address] [place], [address], 02/02/2022 20:31:49 02/03/2002/02/2022 IRON/ TIBC PANEL unsaturated iron bind capacity 185 mcg/d L 126-38 2 Not Available [facility] (Lab) [address] [place], [address], 02/02/2022 20:31:49 02/03/20 22 02/02/2022 IRON/ TIBC PANEL iron 129 mcg/d L 42-175 Not Available [facility] (Lab) [address] [place], [address], 02/02/2022 20:31:49 02/03/20 22 02/02/2022 BASIC METAB OLIC PANEL sodium 139 mmol/ L 137-14 5 Not Available [facility] (Lab) [address] [place], [address], 02/02/2022 20:31:45 02/03/20 22 02/02/2022 BASIC METAB OLIC PANEL potassium 4.5 mmol/ L 3.5-5. 1 Not Available [facility] (Lab) [address] [place], [address], 02/02/2022 20:31:45 02/03/20 22 02/02/2022 BASIC METAB OLIC PANEL chloride 105 mmol/ L 98-107 Not Available [facility] (Lab) [address] [place], [address], 02/02/2022 20:31:45 02/03/20 22 02/02/2022 BASIC METAB OLIC PANEL carbon dioxide 28 mmol/ L 22-30 Not Available [facility] (Lab) [address] [place], [address], 02/02/2022 20:31:45 02/03/20 22 02/02/2022 BASIC METAB OLIC PANEL agap 10.5 mmol/ L 14-22 low Not Available [facility] (Lab) [address] [place], [address], 02/02/2022 20:31:45 02/03/20 22 02/02/2022 BASIC METAB OLIC PANEL glucose 97 mg/dL 70-99 Not Available [facility] (Lab) [address] [place], [address], 02/02/2022 20:31:45 02/03/20 22 02/02/2022 BASIC METAB OLIC PANEL BUN 19 mg/dL 8-19 Not Available [facility] (Lab) [address] [place], [address], 02/02/2022 20:31:45 02/03/20 22 02/02/2022 BASIC METAB OLIC PANEL creatinine 0.70 mg/dL 0.66-1 .25 Not Available [facility] (Lab) [address] [place], [address], 02/02/2022 20:31:45 02/03/20 22 02/02/2022 BASIC METAB OLIC PANEL GFR >60 Refer ence Range : Trion ge GFR Healt hy Adult : >60 [...] calcu lator is avail able on the F websi te: https ://colin w.ana dc.o paddy/pr ofess ional s/kdo qi/gf r_cal culat or Not Available [facility] (Lab) [address] [place], [address], 02/02/2022 20:31:45 02/03/20 22 02/02/2022 BASIC METAB OLIC PANEL calcium 9.7 mg/dL 8.4-10 .2 Not Available [facility] (Lab) [address] [place], [address], 02/02/2022 20:31:45 02/03/20 22 02/02/2022 CBC/C OMPLE TE BLD COUNT W/DIF F white blood cells 6.8 x10'3 /uL 4.2-10 .8 Not Available [facility] (Lab) [address] [place], [address], 02/02/2022 20:05:38 02/03/20 22 02/02/2022 CBC/C OMPLE TE BLD COUNT W/DIF F red blood cells 4.43 x10'6 /uL 3.80-5 .20 Not Available [facility] (Lab) [address] [place], [address], 02/02/2022 20:05:38 02/03/20 22 02/02/2022 CBC/C OMPLE TE BLD COUNT W/DIF F hemoglobin 13.8 g/dL 12.0-1 5.6 Not Available [facility] (Lab) [address] [place], [address], 02/02/2022 20:05:38 02/03/20 22 02/02/2022 CBC/C OMPLE TE BLD COUNT W/DIF F hematocrit 41.6 % 35.7-4 5.7 Not Available [facility] (Lab) [address] [place], [address], 02/02/2022 20:05:38 02/03/20 22 02/02/2022 CBC/C OMPLE TE BLD COUNT W/DIF F mean red cell volume 93.9 fL 82.0-9 9.0 Not Available [facility] (Lab) [address] [place], [address], 02/02/2022 20:05:38 02/03/20 22 02/02/2022 CBC/C OMPLE TE BLD COUNT W/DIF F mean red cell hemoglobin 31.2 pg 27.0-3 3.0 Not Available [facility] (Lab) [address] [place], [address], 02/02/2022 20:05:38 02/03/20 22 02/02/2022 CBC/C OMPLE TE BLD COUNT W/DIF F mean RBC HGB concentratio n 33.2 g/dL 31.0-3 6.0 Not Available [facility] (Lab) [address] [place], [address], 02/02/2022 20:05:38 02/03/20 22 02/02/2022 CBC/C OMPLE TE BLD COUNT W/DIF F red cell distribution width 13.6 % 11.8-1 5.5 Not Available [facility] (Lab) [address] [place], [address], 02/02/2022 20:05:38 02/03/20 22 02/02/2022 CBC/C OMPLE TE BLD COUNT W/DIF F platelets 242 x10'3 /uL 150-40 0 Not Available [facility] (Lab) [address] [place], [address], 02/02/2022 20:05:38 02/03/20 22 02/02/2022 CBC/C OMPLE TE BLD COUNT W/DIF F mean platelet volume 10.7 fL 9.0-12 .4 Not Available [facility] (Lab) [address] [place], [address], 02/02/2022 20:05:38 02/03/20 22 02/02/2022 CBC/C OMPLE TE BLD COUNT W/DIF F neutrophils 62.4 % 39.0-7 2.0 Not Available [facility] (Lab) [address] [place], [address], 02/02/2022 20:05:38 02/03/20 22 02/02/2022 CBC/C OMPLE TE BLD COUNT W/DIF F lymphocytes 26.1 % 16.0-4 7.0 Not Available [facility] (Lab) [address] [place], [address], 02/02/2022 20:05:38 02/03/20 22 02/02/2022 CBC/C OMPLE TE BLD COUNT W/DIF F monocytes 6.8 % 5.0-12 .0 Not Available [facility] (Lab) [address] [place], [address], 02/02/2022 20:05:38 02/03/20 22 02/02/2022 CBC/C OMPLE TE BLD COUNT W/DIF F eosinophils 3.8 % 1.0-7. 0 Not Available [facility] (Lab) [address] [place], [address], 02/02/2022 20:05:38 02/03/20 22 02/02/2022 CBC/C OMPLE TE BLD COUNT W/DIF F basophils 0.6 % 0.0-2. 0 Not Available [facility] (Lab) [address] [place], [address], 02/02/2022 20:05:38 02/03/20 22 02/02/2022 CBC/C OMPLE TE BLD COUNT W/DIF F immature granulocytes 0.3 % 0.00-0 .50 Not Available [facility] (Lab) [address] [place], [address], 02/02/2022 20:05:38 02/03/20 22 02/02/2022 CBC/C OMPLE TE BLD COUNT W/DIF F neutrophils, absolute count 4.25 x10'3 /uL 1.5-8. 0 Not Available [facility] (Lab) [address] [place], [address], 02/02/2022 20:05:38 02/03/20 22 02/02/2022 CBC/C OMPLE TE BLD COUNT W/DIF F lymphocytes, absolute count 1.78 x10'3 /uL 1.07-3 .43 Not Available [facility] (Lab) [address] [place], [address], 02/02/2022 20:05:38 02/03/20 22 02/02/2022 CBC/C OMPLE TE BLD COUNT W/DIF F monocytes, absolute count 0.46 x10'3 /uL 0.29-0 .99 Not Available [facility] (Lab) [address] [place], [address], 02/02/2022 20:05:38 02/03/20 22 02/02/2022 CBC/C OMPLE TE BLD COUNT W/DIF F eosinophils, absolute count 0.26 x10'3 /uL 0.02-0 .53 Not Available [facility] (Lab) [address] [place], [address], 02/02/2022 20:05:38 02/03/20 22 02/02/2022 CBC/C OMPLE TE BLD COUNT W/DIF F basophils, absolute count 0.04 x10'3 /uL 0.01-0 .08 Not Available [facility] (Lab) [address] [place], [address], 02/02/2022 20:05:38 02/03/20 22 02/02/2022 CBC/C OMPLE TE BLD COUNT W/DIF F immature granulocytes ,absolute 0.02 x10'3 /uL 0.00-0 .05 Not Available [facility] (Lab) [address] [place], [address], 02/02/2022 20:05:38 02/03/20 22 02/02/2022 CBC/C OMPLE TE BLD COUNT W/DIF F nucleated red blood cells 0.0 % -0 Not Available [facility] (Lab) [address] [place], [address], 02/02/2022 20:05:38 02/03/20 22 02/02/2022 CBC/C OMPLE TE BLD COUNT W/DIF F NRBC# 0.00 x10'3 /uL Not Available [facility] (Lab) [address] [place], [address], 02/02/2022 20:05:38 03/03/20 22 03/08/2022 RAVEN/A NTINU CLEAR ANTIB ODIES ,IFA antinuclear antibodies, ifa negati ve Negat bonilla <1:80 Borde rline 1:80 Posit bonilla >1:80 ICAP nomen clatu re: AC-0 For more infor matio n about Hep-2 cell patte rns use ANApa ttern s.org , the offic ial websi te for the Inter natio nal Conse nsus on Antin uclea r Antib carmen (RAVEN) Patte rns (ICA ). Perfo rmed at: - [facility] [address], [place] [address] Lab Direc tor: Ralph prince PhD, Phone : [phone] Not Available Not Available 03/08/2022 05:06:41 03/03/20 22 03/05/2022 BACTE RIAL VAGIN OSIS, SALOME atopobium vaginae low - 0 score Not Available [facility] [address] [place], [address], 03/05/2022 19:08:57 03/03/20 22 03/05/2022 BACTE RIAL VAGIN OSIS, SALOME bvab 2 low - 0 score Not Available [facility] [address] [place], [address], 03/05/2022 19:08:57 03/03/20 22 03/05/2022 BACTE RIAL VAGIN OSIS, SALOME megasphaera 1 low - 0 score . Calcu late total score by nemesio morel the 3 indiv idual bacte rial vagin [...] =G - [facility] [place] [address] Lab Direc tor: Danilo estrella MD, Phone : [phone] Not Available [facility] [address] [place], [address], 03/05/2022 19:08:57 03/03/20 22 03/03/2022 TEST NOT PERFO RMED tnp see commen t speci men not colle cted in prope r tube, Zinc needs colle cted in a royal blue plasm a metal free tube Not Available [facility] (Lab) [address] [place], [address], 03/03/2022 21:40:16 03/03/20 22 03/03/2022 URINA LYSIS COMPL ETE/I RIS W/RFX color light- yellow Not Available [facility] [address] [place], [address], 03/03/2022 20:43:09 03/03/20 22 03/03/2022 URINA LYSIS COMPL ETE/I RIS W/RFX appear clear Not Available [facility] [address] [place], [address], 03/03/2022 20:43:09 03/03/20 22 03/03/2022 URINA LYSIS COMPL ETE/I RIS W/RFX specific gravity 1.018 1.001- 1.030 Not Available [facility] [address] [place], [address], 03/03/2022 20:43:09 03/03/20 22 03/03/2022 URINA LYSIS COMPL ETE/I RIS W/RFX pH 6.5 pH_un its 5.0-9. 0 Not Available [facility] [address] [place], [address], 03/03/2022 20:43:09 03/03/20 22 03/03/2022 URINA LYSIS COMPL ETE/I RIS W/RFX leukocytes negati ve germania/u L negati ve- Not Available [facility] [address] [place], [address], 03/03/2022 20:43:09 03/03/20 22 03/03/2022 URINA LYSIS COMPL ETE/I RIS W/RFX nitrite negati ve negati ve- Not Available [facility] [address] [place], [address], 03/03/2022 20:43:09 03/03/20 22 03/03/2022 URINA LYSIS COMPL ETE/I RIS W/RFX protein negati ve mg/dL negati ve- Not Available [facility] [address] [place], [address], 03/03/2022 20:43:09 03/03/20 22 03/03/2022 URINA LYSIS COMPL ETE/I RIS W/RFX glucose normal mg/dL normal - Not Available [facility] [address] [place], [address], 03/03/2022 20:43:09 03/03/20 22 03/03/2022 URINA LYSIS COMPL ETE/I RIS W/RFX ketones negati ve mg/dL negati ve- Not Available [facility] [address] [place], [address], 03/03/2022 20:43:09 03/03/20 22 03/03/2022 URINA LYSIS COMPL ETE/I RIS W/RFX urobilinogen normal mg/dL normal - Not Available [facility] [address] [place], [address], 03/03/2022 20:43:09 03/03/20 22 03/03/2022 URINA LYSIS COMPL ETE/I RIS W/RFX bilirubin negati ve mg/dL negati ve- Not Available [facility] [address] [place], [address], 03/03/2022 20:43:09 03/03/20 22 03/03/2022 URINA LYSIS COMPL ETE/I RIS W/RFX blood negati ve mg/dL negati ve- Not Available [facility] [address] [place], [address], 03/03/2022 20:43:09 03/03/20 22 03/03/2022 URINA LYSIS COMPL ETE/I RIS W/RFX white blood cells 0-8 /i??h pfi?? 0-8 Not Available [facility] [address] [place], [address], 03/03/2022 20:43:09 03/03/20 22 03/03/2022 URINA LYSIS COMPL ETE/I RIS W/RFX red blood cells 0-4 /i??h pfi?? 0-4 Not Available [facility] [address] [place], [address], 03/03/2022 20:43:09 03/03/20 22 03/03/2022 URINA LYSIS COMPL ETE/I RIS W/RFX bacteria none Not Available [facility] [address] [place], [address], 03/03/2022 20:43:09 03/03/20 22 03/03/2022 URINA LYSIS COMPL ETE/I RIS W/RFX mucous occasi onal /i??l pfi?? abnormal Not Available [facility] [address] [place], [address], 03/03/2022 20:43:09 03/03/20 22 03/03/2022 URINA LYSIS COMPL ETE/I RIS W/RFX squamous epithelial none /i??l pfi?? Not Available [facility] [address] [place], [address], 03/03/2022 20:43:09 03/03/20 22 03/03/2022 URINA LYSIS COMPL ETE/I RIS W/RFX non-squamous epithelial 2 abnormal Not Available [facility] [address] [place], [address], 03/03/2022 20:43:09 07/26/20 23 07/26/2023 CBC/C OMPLE TE BLD COUNT W/DIF F white blood cells 5.3 x10'3 /uL 4.2-10 .8 Not Available [facility] (Lab) [address] [place], [address], 07/26/2023 18:49:31 07/26/20 23 07/26/2023 CBC/C OMPLE TE BLD COUNT W/DIF F red blood cells 4.13 x10'6 /uL 3.80-5 .20 Not Available [facility] (Lab) [address] [place], [address], 07/26/2023 18:49:31 07/26/20 23 07/26/2023 CBC/C OMPLE TE BLD COUNT W/DIF F hemoglobin 12.5 g/dL 12.0-1 5.6 Not Available [facility] (Lab) [address] [place], [address], 07/26/2023 18:49:31 07/26/20 23 07/26/2023 CBC/C OMPLE TE BLD COUNT W/DIF F hematocrit 39.0 % 35.7-4 5.7 Not Available [facility] (Lab) [address] [place], [address], 07/26/2023 18:49:31 07/26/20 23 07/26/2023 CBC/C OMPLE TE BLD COUNT W/DIF F mean red cell volume 94.4 fL 82.0-9 9.0 Not Available [facility] (Lab) [address] [place], [address], 07/26/2023 18:49:31 07/26/20 23 07/26/2023 CBC/C OMPLE TE BLD COUNT W/DIF F mean red cell hemoglobin 30.3 pg 27.0-3 3.0 Not Available [facility] (Lab) [address] [place], [address], 07/26/2023 18:49:31 07/26/20 23 07/26/2023 CBC/C OMPLE TE BLD COUNT W/DIF F mean RBC HGB concentratio n 32.1 g/dL 31.0-3 6.0 Not Available [facility] (Lab) [address] [place], [address], 07/26/2023 18:49:31 07/26/20 23 07/26/2023 CBC/C OMPLE TE BLD COUNT W/DIF F red cell distribution width 13.7 % 11.8-1 5.5 Not Available [facility] (Lab) [address] [place], [address], 07/26/2023 18:49:31 07/26/2007/26/2023 CBC/C OMPLE TE BLD COUNT W/DIF F platelets 228 x10'3 /uL 150-40 0 Not Available [facility] (Lab) [address] [place], [address], 07/26/2023 18:49:31 07/26/2007/26/2023 CBC/C OMPLE TE BLD COUNT W/DIF F mean platelet volume 10.9 fL 9.0-12 .4 Not Available [facility] (Lab) [address] [place], [address], 07/26/2023 18:49:31 07/26/20 23 07/26/2023 CBC/C OMPLE TE BLD COUNT W/DIF F neutrophils 46.7 % 39.0-7 2.0 Not Available [facility] (Lab) [address] [place], [address], 07/26/2023 18:49:31 07/26/2007/26/2023 CBC/C OMPLE TE BLD COUNT W/DIF F lymphocytes 39.8 % 16.0-4 7.0 Not Available [facility] (Lab) [address] [place], [address], 07/26/2023 18:49:31 07/26/2007/26/2023 CBC/C OMPLE TE BLD COUNT W/DIF F monocytes 9.3 % 5.0-12 .0 Not Available [facility] (Lab) [address] [place], [address], 07/26/2023 18:49:31 07/26/2007/26/2023 CBC/C OMPLE TE BLD COUNT W/DIF F eosinophils 3.2 % 1.0-7. 0 Not Available [facility] (Lab) [address] [place], [address], 07/26/2023 18:49:31 07/26/2007/26/2023 CBC/C OMPLE TE BLD COUNT W/DIF F basophils 0.8 % 0.0-2. 0 Not Available [facility] (Lab) [address] [place], [address], 07/26/2023 18:49:31 07/26/2007/26/2023 CBC/C OMPLE TE BLD COUNT W/DIF F immature granulocytes 0.2 % 0.00-0 .50 Not Available [facility] (Lab) [address] [place], [address], 07/26/2023 18:49:31 07/26/2007/26/2023 CBC/C OMPLE TE BLD COUNT W/DIF F neutrophils, absolute count 2.47 x10'3 /uL 1.5-8. 0 Not Available [facility] (Lab) [address] [place], [address], 07/26/2023 18:49:31 07/26/2007/26/2023 CBC/C OMPLE TE BLD COUNT W/DIF F lymphocytes, absolute count 2.10 x10'3 /uL 1.07-3 .43 Not Available [facility] (Lab) [address] [place], [address], 07/26/2023 18:49:31 07/26/2007/26/2023 CBC/C OMPLE TE BLD COUNT W/DIF F monocytes, absolute count 0.49 x10'3 /uL 0.29-0 .99 Not Available [facility] (Lab) [address] [place], [address], 07/26/2023 18:49:31 07/26/2007/26/2023 CBC/C OMPLE TE BLD COUNT W/DIF F eosinophils, absolute count 0.17 x10'3 /uL 0.02-0 .53 Not Available [facility] (Lab) [address] [place], [address], 07/26/2023 18:49:31 07/26/2007/26/2023 CBC/C OMPLE TE BLD COUNT W/DIF F basophils, absolute count 0.04 x10'3 /uL 0.01-0 .08 Not Available [facility] (Lab) [address] [place], [address], 07/26/2023 18:49:31 07/26/2007/26/2023 CBC/C OMPLE TE BLD COUNT W/DIF F immature granulocytes ,absolute 0.01 x10'3 /uL 0.00-0 .05 Not Available [facility] (Lab) [address] [place], [address], 07/26/2023 18:49:31 07/26/20 23 07/26/2023 CBC/C OMPLE TE BLD COUNT W/DIF F nucleated red blood cells 0.0 % -0 Not Available [facility] (Lab) [address] [place], [address], 07/26/2023 18:49:31 07/26/20 23 07/26/2023 CBC/C OMPLE TE BLD COUNT W/DIF F NRBC# 0.00 x10'3 /uL Not Available [facility] (Lab) [address] [place], [address], 07/26/2023 18:49:31 07/26/2007/26/2023 SEDIM ENTAT ION RATE erythrocyte sedimentatio n rate 14 mm/HR 0-20 Not Available [facility] (Lab) [address] [place], [address], 07/26/2023 19:09:00 07/26/2007/26/2023 RHEUM ATOID FACTO R rf <8.6 IU/mL 0.0-11 .9 Not Available [facility] (Lab) [address] [place], [address], 07/26/2023 19:51:09 07/26/2007/26/2023 C REACT BONILLA PROTE IN,UL TRA SENS C-reactive protein 0.25 mg/dL 0.0-0. 5 Not Available [facility] (Lab) [address] [place], [address], 07/26/2023 19:51:11 07/26/2007/26/2023 URIC ACID SERUM uric acid 4.3 mg/dL 2.5-6. 2 Not Available [facility] (Lab) [address] [place], [address], 07/26/2023 20:14:24 09/1207/29/2023 RAVEN BY IFA RFX TITER /RUBIA RADHA [...] ). Perfo rmed at: CB - [facility] [address] [facility], [place] [id number] Lab Direc tor: Ralph prince PhD, Phone : [phone] Not Available [facility] (Lab) [address] [place], [address], 07/29/2023 09:13:51 01/20/20 22 01/19/2022 US, victor m de los santos No observ ation record ed. [id number] [facility], [place], [address], 01/12/2023 08:15:31 01/20/20 22 01/19/2022 MAMMO , diagn ostic , digit al, bilat eral No observ ation record ed. [id number] [facility], [place], [address], 01/12/2023 08:15:31 01/27/20 23 01/25/2023 MAMMO , scree gabe, digit al, bilat eral No observ ation record ed. [email or web address] [facility] [address] [place], [address], 01/31/2023 17:17:45 08/10/20 23 08/02/2023 home sleep study No observ ation record ed. [email or web address] Not Available 2022 10:33:39 09/01/20 23 09/01/2023 DEXA No observ ation record ed. [email or web address] [facility] [address], [place], [address], 03/28/2024 19:17:39 Result Notes None recorded. Problems Name Problem SNOMED Code Status Onset Date Resolution Date Notes Provider Name and Address Organization Details Recorded Time Insomnia 190418114 Active Not Available [facility] 3 08:10:21 Menopause finding 276884050 Active Not Available [facility] 3 08:10:21 Vaginitis 86707969 Active Not Available [facility] 3 08:10:21 Depressive disorder 19178218 Active Not Available [facility] 3 08:10:22 Anxiety 09834926 Active Not Available [facility] 3 08:10:22 Hyperlipidemi a 10629199 Active Not Available [facility] 3 08:10:22 Osteoporosis 06720710 Active Not Available [facility] 3 08:10:22 Fatigue 06904171 Active Not Available [facility] 3 08:10:22 Melanoma in situ of skin (clinical) 581708014 Active 2016 Not Available [facility] 3 08:10:21 Squamous cell carcinoma 794656256 Active 2016 Not Available [facility] 3 08:10:22 Vitamin D deficiency 62877655 Active 2017 Not Available [facility] 3 08:10:21 Sleep apnea 62277548 Active 2022 Palmira Romo MD [address] [place] [address], [place], [address] , [employer] [facility] 3 14:39:58 Migraine 21935706 Active 2022 Palmira Romo MD [address], [place], [address] , [employer] [facility] 3 14:47:07 Pain of multiple joints 64941488 Active 2022 Palmira Romo MD [address], [place], [address] , [employer] [facility] 3 14:53:44 Acute situational disturbance 396716097 Active 2022 Palmira Romo MD [address] [place] [address], [place], [address] , [facility] [employer] [facility] [employer] 3 15:10:02 Problem Notes None recorded. Procedures Surgical History Date Name Laterality Status Provider Name and Address Organization Details Recorded Time 05/01/20 colonoscopy completed Not Available [facility] 01/13/20 08:05:43 excision of lesion of skin completed Not Available [facility] 01/12/2023 08:05:43 total hysterectomy with removal of both tubes and ovaries completed Not Available [facility] 01/12/2023 08:05:43 Imaging Results None recorded. Procedure Notes None recorded. Medical Equipment None Reported. Allergies Allergen ID Allergen Name Allergen Category Reaction Reaction Severity Criticality Documentation Date Start Date Code Code System Note Provider Name and Address Organization Details Recorded Time Substance with sulfonami de structure and antibacte rial mechanism of action (substanc e) medicatio n rash Not available Not available 01/12/2023 70431 8003 SNOMED Not Available [facility] 3 08:15:23 16392 morphine medicatio n Not available Not available Not available 01/12/2023 7052 RxNorm Not Available [facility] 3 08:15:24 Medications Name Sig Start Date Stop Date Status Note LastModified by Organization Details LastModified Time quetiapin e 25 mg tablet TAKE 1 TABLET BY MOUTH EVERY DAY AT BEDTIME active Not Available Not Available No t Available nystatin 100,000 unit/mL oral suspensio n Take 10 mL 4 times a day by oral route for 7 days. active Not Available Not Available No t Available atorvasta tin 10 mg tablet Take 1 tablet every day by oral route for 30 days. active Not Available Not Available No t Available azithromy jewel 250 mg tablet active Not Available Not Available No t Available prednison e 20 mg tablet Take 2 tablets every day by oral route for 5 days. active Not Available Not Available No t Available alendrona te 70 mg tablet 1 po qweek 10/31 completed ALENDRON ATE 70MG Not Available Not Available Not Available omeprazol e 40 mg capsule,d elayed release Take 1 capsule every day by oral route. 07/26 completed Not Available Not Available Not Available oxycodone -acetamin ophen 5 mg-325 mg tablet 10/31 completed Not Available Not Available Not Available alprazola m 0.5 mg tablet TAKE 1 TABLET BY MOUTH EVERY DAY NEEDED active Not Available Not Available No t Available Metrogel Vaginal 0.75 % (37.5 mg/5 gram) Insert 1 applicat orful every day by vaginal route at bedtime for 7 days. 11/19 completed Not Available Not Available Not Available cephalexi n 500 mg capsule active Not Available Not Available Not Available pantopraz ole 40 mg tablet,de layed release TAKE 1 TABLET BY MOUTH EVERY DAY 07/26 completed Not Available Not Available Not Available buspirone 10 mg tablet 1/2 po qday 05/20 completed Not Available Not Available Not Available zolpidem 5 mg tablet TAKE 1/2 TO 1 TABLET BY MOUTH AT BEDTIME NEEDED active Not Available Not Available No t Available ergocalci ferol (vitamin D2) 1,250 mcg (50,000 unit) capsule Take 1 capsule every week by oral route. 10/31 completed Not Available Not Available Not Available fluocinol one 0.01 % topical solution APPLY TO ITCHING SCALP AREA ONE TO FOUR TIMES A WEEK NEEDED 12/01 completed Not Available Not Available Not Available Zoloft 100 mg tablet Take 1 tablet every day by oral route. 07/11 completed Not Available Not Available Not Available amoxicill in 875 mg-potass ium clavulana te 125 mg tablet Take 1 tablet every 12 hours by oral route for 7 days. 02/20 completed Not Available Not Available Not Available hydroxyzi ne pamoate 25 mg capsule TAKE 1 TO 2 CAPSULES BY MOUTH AT BEDTIME NEEDED 03/03 completed Not Available Not Available Not Available escitalop gustabo 20 mg tablet 1 po qday 2022 active Not Available Not Available Not Avai lable Lexapro 10 mg tablet Take 1 tablet every day by oral route for 30 days. 08/01 completed Not Available Not Available Not Available Abilify 5 mg tablet Take 2 tablets every day by oral route for 30 days. active Not Available Not Available No t Available eszopiclo ne 3 mg tablet TAKE 1 TABLET BY MOUTH EVERYDAY AT BEDTIME prn 2022 active Not Available Not Available Not Avai lable eszopiclo ne 2 mg tablet Take by oral route for 30 days. active Not Available Not Available No t Available Boniva 150 mg tablet Take 1 tablet every month by oral route for 30 days. 04/21 completed Not Available Not Available Not Available Rozerem 8 mg tablet active Not Available Not Available No t Available Seroquel XR 50 mg tablet,ex tended release active Not Available Not Available Not Available Viibryd 40 mg tablet Take 1 tablet every day by oral route for 30 days. active Not Available Not Available No t Available Xarelto 10 mg tablet 10/31 completed Not Available Not Available Not Available Belsomra 20 mg tablet TAKE 1 TABLET BY MOUTH AT BEDTIME 06/15 completed Not Available Not Available Not Available [facility] mg disintegr ating tablet active Not Available Not Available Not Available Vitals Date Recorded Body mass index (BMI) Body height Oxygen saturation Oxygen saturation in Arterial blood by Pulse oximetry Heart rate Body temperature Body weight Systolic And Diastolic Provider Name and Address Organization Details Last Updated DateTime 2 23.2 kg/m2 167.64 cm 96 % 96 % 60 /min 97 [degF] 84497.3 g 120/60 mm[Hg] Not Available [facility] 3 08:08:34 Date Recorded Body mass index (BMI) Body height Oxygen saturation Oxygen saturation in Arterial blood by Pulse oximetry Heart rate Body temperature Body weight Systolic And Diastolic Provider Name and Address Organization Details Last Updated DateTime 2 23.1 kg/m2 167.64 cm 98 % 98 % 67 /min 97.4 [degF] 79458.7 1 g 120/68 mm[Hg] Not Available [facility] 3 08:08:35 Date Recorded Body mass index (BMI) Body height Oxygen saturation Oxygen saturation in Arterial blood by Pulse oximetry Heart rate Body temperature Body weight Systolic And Diastolic Provider Name and Address Organization Details Last Updated DateTime 2 23.9 kg/m2 167.64 cm 95 % 95 % 72 /min 98.5 [degF] 58857.6 7 g 120/70 mm[Hg] Not Available [facility] 3 08:08:35 Date Recorded Body weight Body temperature Heart rate Oxygen saturation Oxygen saturation in Arterial blood by Pulse oximetry Systolic And Diastolic Provider Name and Address Organization Details Last Updated DateTime 3 96440.0 4 g 98 [degF] 68 /min 97 % 97 % 118/60 mm[Hg] ESTHER Granados [facility] Guang Lian Shi Dai [facility] 3 14:26:44 Date Recorded Body mass index (BMI) Body height Oxygen saturation Oxygen saturation in Arterial blood by Pulse oximetry Heart rate Body temperature Body weight Systolic And Diastolic Provider Name and Address Organization Details Last Updated DateTime 1 24 kg/m2 167.64 cm 97 % 97 % 71 /min 97.4 [degF] 48556.2 6 g 120/70 mm[Hg] Not Available [facility] 3 08:08:34 Social History Question Answer Notes LastModified by [employer] Details LastModified Time Tobacco Smoking Status Never Smoker Not Available [facility] 01/12/2023 08:05:30 What Was The Date Of Your Most Recent Tobacco Screening? 07/26/2023 [email or web address] Information not available 07/26/2023 Sex: Female Functional Status Question Answer Note LastModified by [employer] Details LastModified Time Do you or have you ever used any other forms of tobacco or nicotine? No [id number] Information not available 01/12/2023 Mental Status None recorded. Family History Relationship Description Onset Age of this Age Resolved Age Notes LastModified by Organization Details LastModified Time Father No current problems or disability [email or web address] Not available 07/26 14:37:10 Mother No current problems or disability [email or web address] Not available 07/26 14:37:10 Notes:ADOPTED Medical History No medical history recorded. Gynecological HistoryNo gynecological history recorded. Obstetrics History GPAL:G 0 P 0 0 0 0 Immunizations Vaccine Type Date Status Note Provider Nam e and Address Organization Details Recorded Time Tdap 07/26/2023 completed Monika Camacho RN [facility], [facility] Guang Lian Shi Dai [facility] 07/26/2023 15:20:50 MMR 07/05/1969 completed Not Available [facility] 01/12/2023 08:15:13 MMR 11/14/1965 completed Not Available [facility] 01/12/2023 08:15:13 Tdap 09/05/2012 completed Not Available [facility] 01/12/2023 08:15:13 Hep B, adult 12/20/2001 completed Not Available [facility] 01/12/2023 08:15:14 Hep B, adult 07/23/2001 completed Not Available [facility] 01/12/2023 08:15:14 Tdap 06/14/2001 completed Not Available [facility] 01/12/2023 08:15:14 Hep B, adult 06/14/2001 completed Not Available [facility] 01/12/2023 08:15:14 Past Encounters Encounter ID Performer Location Encounter Start Date Encounter Closed Date Diagnosis/Indication Diagnosis SNOMED-CT Code Diagnosis ICD10 Code Diagnosis IMO Codes Diagnosis Note [id number] Palmria Romo MD [facility] [place] [address] [place] [address] 06/15/2021 00:00:00 06/15/2021 15:23:13 [id number] Palmira Romo MD [facility] [place] [address] [place] [address] 09/10/2021 00:00:00 09/11/2021 08:28:16 [id number] Palmira Romo MD [facility] [place] [address] [place] [address] 02/02/2022 00:00:00 02/11/2022 13:49:12 [id number] Palmira Romo MD [facility] [place] [address] [place] [address] 03/03/2022 00:00:00 03/12/2022 10:36:17 [id number] Palmira Romo MD [facility] [place] [address] [place] [address] 05/20/2022 00:00:00 05/20/2022 14:56:11 [id number] Palmira Romo MD [facility] [place] [address] [address] [facility] [address] [place] [address] 07/26/2023 14:16:40 07/26/2023 15:25:06 Adult health examination 493391932 Z00.00 Colonoscop y 04/2020 hyperplast ic polyp repeat in 10 years Mammogram normal 02/03 Check fasting labs s/p completed hysterecto my-no further paps needed Completed shingles vaccine Covid booster this fall Flu vaccine this fall Tdap today DEXA ordered Fasting labs up to date-see life line screen report Insomnia 058357177 G47.0 0 chronic issuesleep hygeineok to continue melatoninT HC gummieslun esta 3 mg po qhs prn breakthrou gh insomnia Sleep apnea 41102334 G47 .30 snoring and excessive daytime somnolence sleep study ordered Migraine 97603703 G43.90 9 trial of nurtec 75 mg prn Pain of mu ltiple joints 55295375 M25.50 check labs Active or passive immunization 690696322 Z23 Postmenopausal state 764 31135 Z78.0 Hyperlipidemia 71856029 E78.5 reviewed labsTchol 157, HDL 61, Trig 214, LDL 53continue fish oil otc Acute situ ational disturbance 493962345 F43.20 uses sparingly, last refill 2019 Health Concerns Section Related Observation LastModified by Organization Detai ls LastModified Time None Recorded Concern Status LastModified by Organization Details LastModified Time None Recorded Advance Directives Directive None Recorded Payers Insurance Date Sequence Insurance Name Policy Number Policy Mccracken Covered Member ID Mccracken Member ID Guarantor Name 07/29/2023 1 [facility] Nelson Juan [id number] Delmy Martinez Notes Date Note Type Note Provider Name and Address Organization Details Recorded Time 07/26/2023 text/html ROS as noted in the HPI Here for wellness exam She is snoring at night, excessive daytime somnolence long h/o insomnia. She follows bedtime routine and uses thc gummies, melatonin and lunesta when needed. she continues to struggle with headaches, can go about a month in between, headache can last a full day or longer. Has used otc tylenol, nsaids, allergy/sinus medications. Usually just 1/2 of her head, +sensitivity to light/sound. No trigger. joints in hands hurt b/l, seemed to happen overnight, now it seems like all over her body her joints hurt. No redness or heat, +stiffness Palmira Romo MD [address] [facility], [facility] [address], [place], [address], [place] [facility] 07/26/2023 15:11:38 OBGyn Episode No OBEpisode recorded.
[2025-08-16 08:31] VITALS: BP 109/46; PULSE 74; RESP 16; TEMP 36.6; O2SAT 100
[2025-08-16] MEDS: LACTATED RINGERS 1,000 ML 150 ML IV CONT (08:41)
--- NOTE | 2025-08-16 08:59 | WPDANESEPPF ---
Anes - Initial Pre Proc Eval Procedure: Operation Date: 08/16/25 09:30 Proposed Procedures p Screening Colonoscopy - Cleveland May MD Date/Time: 08/16/25 08:59 Surgeon: Cleveland May MD Pre Op Diagnosis: screening Pre Op Diagnosis: Screening Patient Data Age: 60 Gender: F Height: 1.68 m Weight: 72 kg Last Vital Signs Temp 36.6 C 08/16/25 08:31 Pulse 74 08/16/25 08:31 Resp 16 08/16/25 08:31 BP 109/46 L 08/16/25 08:31 Pulse Ox 100 08/16/25 08:31 O2 Del Method Room Air 08/16/25 08:31 Allergies Allergy/AdvReac Type Severity Reaction Status Date / Time adhesive tape Allergy Mild RASH Verified 08/07/25 12:21 morphine Allergy Unknown itching Verified 08/07/25 12:21 and rash Sulfa (Sulfonamide Allergy Unknown rash and Verified 08/07/25 12:21 Antibiotics) nausea Home Medications ?Medication ?Instructions ?Recorded ?Confirmed ?Type melatonin 5 mg tablet 5 mg PO HS PRN insomia 04/25/20 08/07/25 History alprazolam 0.5 mg tablet 0.25 - 0.5 mg PO DAILY PRN anxiety 03/08/24 08/07/25 History cholecalciferol (vitamin D3) 25 25 mcg PO DAILY 03/08/24 08/16/25 History mcg (1,000 unit) capsule mecobalamin (vitamin B12) 1,000 1,000 mcg sublingual DAILY 03/08/24 08/16/25 History mcg disintegrating tablet,sublingual omega 0-gox-ych-fish oil 1,000 mg 2 cap PO DAILY 03/08/24 08/16/25 History (120 mg-180 mg) capsule (Fish Oil) rimegepant 75 mg disintegrating 75 mg PO ONCE PRN migraine headache 03/08/24 08/07/25 History tablet (Nurtec ODT) eszopiclone 3 mg tablet (Lunesta) 3 mg PO HS PRN insomnia #90 tabs 03/27/25 08/07/25 Rx escitalopram oxalate 20 mg tablet 20 mg PO DAILY #90 tabs 03/28/25 08/16/25 Rx ezetimibe 10 mg tablet (Zetia) 10 mg PO DAILY #30 tabs 07/02/25 08/16/25 Rx ECG: SR 58, appointment with s3b multi sensor operator in place to follow up Patient hx anesthesia problems: none Family hx anesthesia problems: none Results Review: All pre-operative results and documents have been reviewed as part of the pre-operative evaluation. [facility] Past Medical History Medical History Dense breast tissue Hip pain, right Leukocytes in urine Hyperlipidemia Dense breast tissue on mammogram Abnormal mammogram Fatigue Migraine Insomnia B12 deficiency Anemia Endometriosis Melanoma Left leg. s/p excision. Depression Anxiety Surgical History Surgical History History of bunionectomy S/P LAURI-BSO Social History Social History Smoking status: Never smoker Second hand tobacco smoke exposure: No Alcohol intake: current Alcohol use details: rarely Substance use: current Substance use type: marijuana Other substance usage details: CBD/THC gummy Current Housing: Decline to Answer Concerned About Future Housing: Decline to Answer Difficulty Paying Gas/Electric Bills: Decline to Answer Difficulty Paying for Meds: Decline to Answer Currently Unemployed: Decline to Answer Education: Decline to Answer Difficulty w/ Childcare or Family Care: Decline to Answer Living arrangements: with family Additional living arrangements comments: with danyelle Garcia Final PreProcedure Day of Procedure 08/16/25 08:59 Patient weight: normal Heart: regular rate and rhythm Lungs: clear to auscultation Airway: Mallampati scale class II Neurological: alert and oriented Last oral intake: >/= 8 hours ASA classification: III Emergent: no Anesthetic plan: proceed Anesthesia type and monitoring: general GIVS and standard monitoring Results Review: All pre-operative results and documents have been reviewed as part of the pre-operative evaluation. Informed Consent: The patient's anesthetic plan and its attendant risks and benefits were discussed with the patient/family/POA. Questions were solicited and answers provided to the satisfaction of the patient/family/POA.
--- NOTE | 2025-08-16 09:44 | PM.HPGS ---
History of Present Illness History of Present Illness Consent: Risks, benefits, and alternatives have been discussed and questions answered. Patient agrees to proceed with procedure. Chief complaint: Screening Narrative: Delmy Martinez is a 60 year old female with colon polyp in 2019 Review of Systems Review of Systems: All systems reviewed & are unremarkable except as noted in HPI and below PMFSH Past Medical History Medical History (Updated 08/16/25 @ 09:45 by Cleveland May MD) Colon polyp Dense breast tissue Hip pain, right Leukocytes in urine Hyperlipidemia Dense breast tissue on mammogram Abnormal mammogram Fatigue Migraine Insomnia B12 deficiency Anemia Endometriosis Melanoma Left leg. s/p excision. Depression Anxiety Surgical History Surgical History History of bunionectomy S/P LAURI-BSO Social History Social History Smoking status: Never smoker Second hand tobacco smoke exposure: No Alcohol intake: current Alcohol use details: rarely Substance use: current Substance use type: marijuana Other substance usage details: CBD/THC gummy Current Housing: Decline to Answer Concerned About Future Housing: Decline to Answer Difficulty Paying Gas/Electric Bills: Decline to Answer Difficulty Paying for Meds: Decline to Answer Currently Unemployed: Decline to Answer Education: Decline to Answer Difficulty w/ Childcare or Family Care: Decline to Answer Living arrangements: with family Additional living arrangements comments: with sp Meds Home Medications and Allergies Home Medications ?Medication ?Instructions ?Recorded ?Confirmed ?Type melatonin 5 mg tablet 5 mg PO HS PRN insomia 04/25/20 08/07/25 History alprazolam 0.5 mg tablet 0.25 - 0.5 mg PO DAILY PRN anxiety 03/08/24 08/07/25 History cholecalciferol (vitamin D3) 25 25 mcg PO DAILY 03/08/24 08/16/25 History mcg (1,000 unit) capsule mecobalamin (vitamin B12) 1,000 1,000 mcg sublingual DAILY 03/08/24 08/16/25 History mcg disintegrating tablet,sublingual omega 8-gtl-uxd-fish oil 1,000 mg 2 cap PO DAILY 03/08/24 08/16/25 History (120 mg-180 mg) capsule (Fish Oil) rimegepant 75 mg disintegrating 75 mg PO ONCE PRN migraine headache 03/08/24 08/07/25 History tablet (Nurtec ODT) eszopiclone 3 mg tablet (Lunesta) 3 mg PO HS PRN insomnia #90 tabs 03/27/25 08/07/25 Rx escitalopram oxalate 20 mg tablet 20 mg PO DAILY #90 tabs 03/28/25 08/16/25 Rx ezetimibe 10 mg tablet (Zetia) 10 mg PO DAILY #30 tabs 07/02/25 08/16/25 Rx Allergies Allergy/AdvReac Type Severity Reaction Status Date / Time adhesive tape Allergy Mild RASH Verified 08/07/25 12:21 morphine Allergy Unknown itching Verified 08/07/25 12:21 and rash Sulfa (Sulfonamide Allergy Unknown rash and Verified 08/07/25 12:21 Antibiotics) nausea Vital Signs Vital Signs - 24 hr 08/16/25 08:31 Temperature 97.8 F Pulse Rate 74 Respiratory Rate 16 Blood Pressure 109/46 L Pulse Oximetry 100 Oxygen Delivery Room Air Exam Const: General: comfortable and no acute distress HENMT: Face/Nose/Sinus: Normal nares present Eyes: General: appearance normal, both eyes and all related structures Resp: Auscultation: clear to auscultation bilaterally Cardio: Rate: regular rate Rhythm: regular rhythm GI: Inspection: non-distended GI Palp: Yes Soft to palpation Skin: General skin exam: normal color Extrem: General: normal to inspection Psych: Mental Status: mental status grossly normal Assessment and Plan Assessment and plan (1) Colon polyp: Code(s): K63.5 - Polyp of colon Status: Acute Assessment and Plan: colonoscopy
[2025-08-16 10:09] VITALS: BP 105/64; PULSE 75; RESP 17; O2SAT 99
[2025-08-16 10:19] VITALS: BP 113/62; PULSE 71; RESP 20; O2SAT 99
[2025-08-16 10:29] VITALS: BP 113/60; PULSE 65; RESP 16; O2SAT 99
== END 2025-08-16 10:34 | disposition home or self-care (01) ==
PROVIDERS: PCP Nurse Practitioner Family; Referring Provider Nurse Practitioner Family; Visit Provider Internal Medicine Gastroenterology
PROC: 0DJD8ZZ Inspection of Lower Intestinal Tract, Via Natural or Artificial Opening Endoscopic (ICD-10-PCS; CPT 45378; principal; 2025-08-16 09:30)
DX: Z12.11 Encounter for screening for malignant neoplasm of colon (principal); K64.8 Other hemorrhoids; Z86.0100 Personal history of colon polyps, unspecified; F12.90 Cannabis use, unspecified, uncomplicated
CPT/HCPCS: 45378; J2003; J2704; J7120